=== PATIENT | female | born 1935 | race Caucasian/White ===

== ENCOUNTER 2018-08-03 21:41 | Inpatient (IN) | payer MEDICARE ==
[~2018-08-03] VITALS: Ht 180.3 cm; Wt 106.1 kg
[2018-08-03] MEDS ORDERED: SODIUM CHLORIDE 0.9% 1000ML 1,000 ML IV SCH (22:19)
[2018-08-03] MEDS ORDERED: IPRATROPIUM BROMIDE 0.02% 2.5 ML NEB NEB STA (22:19)
[2018-08-03] MEDS ORDERED: ALBUTEROL SULF 0.083% NEB SOLN 3 ML NEB NEB STA (22:19)
[2018-08-03] MEDS ORDERED: AZTREONAM 2GM/NS 100ML 2 GM in AZTREONAM 2GM/NS 100ML 100 ML IV SCH (22:30)
[2018-08-03] MEDS ORDERED: VANCOMYCIN 1GM/NS 250 ML 250 ML IV SCH (22:30)
[2018-08-03] MEDS ORDERED: SODIUM CHLORIDE FLUSH 10 ML SYR INJ PRN (22:30)
--- NOTE | 2018-08-03 22:56 | Diagnostic Imaging Report ---
EXAM: CHEST SINGLE (PORTABLE), AP 1 view INDICATION: Shortness of breath, COPD COMPARISON: None FINDINGS: LINES/TUBES: None LUNGS: No consolidations or edema. PLEURA: No effusions or pneumothorax. Mild subsegmental bibasilar atelectasis. HEART AND MEDIASTINUM: Normal size and contour. Calcifications of the thoracic aorta. BONES AND SOFT TISSUES: No acute findings. IMPRESSION: Mild subsegmental bibasilar atelectasis. Signed by: Dr. Mara Gallagher M.D. on 08/03/2018 10:52 PM
--- NOTE | 2018-08-03 23:16 | NUR ---
RT CALLED FOR BREATHING TREATMENT.
[2018-08-03 23:34] LABS: BASOPHILS # (AUTO) 0.1 (0.0-0.1); BASOPHILS % 0.5 % (0.0-1.0); EOSINOPHILS # (AUTO) 0.1 (0.0-0.4); EOSINOPHILS % 1.2 % (0.0-6.0); HEMATOCRIT 41.8 % (34.2-44.1); HEMOGLOBIN 12.9 g/dL (12.0-16.0); LYMPHOCYTES # (AUTO) 0.7 (1.0-3.2); LYMPHOCYTES % 7.3 % (18.0-39.1); MEAN CORPUSCULAR HEMOGLOBIN 30.4 pg (28-32); MEAN CORPUSCULAR HGB CONC 30.9 g/dL (31-35); MEAN CORPUSCULAR VOLUME 98.4 fL (81-99); MONOCYTES # (AUTO) 0.9 (0.2-0.8); MONOCYTES % 8.9 % (4.4-11.3); NEUTROPHILS # (AUTO) 8.1 (2.1-6.9); NEUTROPHILS % 80.1 % (38.7-80.0); PLATELET COUNT 601 x10e3/uL (140-360); RED BLOOD COUNT 4.25 x10e6/uL (3.6-5.1); RED CELL DISTRIBUTION WIDTH 12.3 % (11.7-14.4)
[2018-08-03 23:53] LABS: ALANINE AMINOTRANSFERASE 12 IU/L (0-55); ALBUMIN 2.2 g/dL (3.5-5.0); ALBUMIN/GLOBULIN RATIO 0.4 (0.8-2.0); ALKALINE PHOSPHATASE 115 IU/L (40-150); ANION GAP 13.9 mmol/L (8-16); BLOOD UREA NITROGEN 16 mg/dL (7-26); BUN/CREATININE RATIO 19 (6-25); CALCIUM 9.8 mg/dL (8.4-10.2); CARBON DIOXIDE 35 mmol/L (22-29); CHLORIDE 95 mmol/L (98-107); CREATINE KINASE 20 IU/L (29-168); CREATININE, SERUM 0.83 mg/dL (0.57-1.11); EST GLOMERULAR FILTRATION RATE > 60 ML/MIN (60-); GLUCOSE 110 mg/dL (74-118); POTASSIUM 3.9 mmol/L (3.5-5.1); SODIUM 140 mmol/L (136-145)
[2018-08-04] VITALS (8 sets, daily range): BP systolic 126–152; BP diastolic 65–76
[2018-08-04] MEDS: AZTREONAM 2GM/NS 100ML 100 ML IV SCH ×2 (00:13→12:20)
[2018-08-04 00:30] LABS: CLARITY,URINE CLEAR (CLEAR); COLOR,URINE YELLOW (YELLOW); LEUKOCYTE ESTERASE ,URINE NEGATIVE (NEGATIVE); NITRITE,URINE NEGATIVE (NEGATIVE)
[2018-08-04 00:31] LABS: BACTERIA,URINE FEW /HPF; BILIRUBIN,URINE NEGATIVE (NEGATIVE); EPITHELIAL CELLS,URINE RARE /LPF; KETONES,URINE NEGATIVE (NEGATIVE); MUCUS,URINE MODERATE (RARE); PROTEIN,URINE DIPSTICK TRACE (NEGATIVE); URINE UROBILINOGEN 4 mg/dL (0.2 - 1)
[2018-08-04] MEDS ORDERED: ENOXAPARIN INJ 80 MG/0.8 ML SYR SC STA (01:38)
[2018-08-04] MEDS ORDERED: DILTIAZEM HCL ER 90MG CAPSULE PO STA (01:38)
[2018-08-04] MEDS ORDERED: VANCOMYCIN 1GM/NS 250 ML 250 ML IV SCH (01:45)
--- NOTE | 2018-08-04 02:11 | Diagnostic Imaging Report ---
EXAM: ANKLE 3 + VIEWS RIGHT, AP, lateral and oblique INDICATION: Fall, right ankle pain COMPARISON: None FINDINGS: BONES: No acute fractures. JOINTS: No malalignment. SOFT TISSUES: Soft tissue calcifications, probably from venous stasis. Soft tissue swelling of the lower calf and ankle. IMPRESSION: No evidence of a right ankle fracture. Signed by: Dr. Mara Gallagher M.D. on 08/04/2018 2:08 AM
--- OUTSIDE RECORDS SUMMARY | 2018-08-04 02:14 | XMS REPORT ---
Author Author [facility] Address Unknown Phone Unavailable Care Team Providers Care Machine Feeder Raw Stock Name Role Phone EDILMA CARROLL Unavailable Unavailable Problems This patient has no known problems. Allergies, Adverse Reactions, Alerts This patient has no known allergies or adverse reactions. Medications This patient has no known medications. Results Test Description Test Time Test Comments Text Results Atomic Results Result Comments ANKLE 3 + VIEWS RIGHT 2018-08-04 02:06:00 [place] [address] Patient Name: RAMIN ROSS MR #: [id number] : 1935 Age/Sex: 83/F Req #: [id number] Adm Physician: Ordered by: SHREYA HENDRICKSON MD Report #: [id number] Location: ER Room/Bed: Procedure: [id number] DX/ANKLE 3 + VIEWS RIGHT Exam Date: 08/04/18 Exam Time: 0145 REPORT STATUS: Signed EXAM: ANKLE 3 + VIEWS RIGHT, AP, lateral and oblique INDICATION: Fall, right ankle pain COMPARISON: None FINDINGS: BONES: No acute fractures. JOINTS: No malalignment. SOFT TISSUES: Soft tissue calcifications, probably from venous stasis. Soft tissue swelling of the lower calf and ankle. IMPRESSION: No evidence of a right ankle fracture. Signed by: Dr. Cheri Gallagher M.D. on 08/04/2018 2:08 AM Dictated By: CHERI GALLAGHER MD 7 Transcribed By: ERIN on 08/04/18207 COPY TO: SHREYA HENDRICKSON MD CHEST SINGLE (PORTABLE) 2018-08-03 22:51:00 [place] [address] Patient Name: RAMIN ROSS MR #: [id number] : 1935 Age/Sex: 83/F Req #: [id number] Adm Physician: Ordered by: SHREYA HENDRICKSON MD Report #: [id number] Location: ER Room/Bed: Procedure: [id number] DX/CHEST SINGLE (PORTABLE) Exam Date: Exam Time: REPORT STATUS: Signed EXAM: CHEST SINGLE (PORTABLE), AP 1 view INDICATION: Shortness of breath, COPD COMPARISON: None FINDINGS: LINES/TUBES: None LUNGS: No consolidations or edema. PLEURA: No effusions or pneumothorax. Mild subsegmental bibasilar atelectasis. HEART AND MEDIASTINUM: Normal size and contour. Calcifications of the thoracic aorta. BONES AND SOFT TISSUES: No acute findings. IMPRESSION: Mild subsegmental bibasilar atelectasis. Signed by: Dr. Cheri Gallagher M.D. on 08/03/2018 10:52 PM Dictated By: CHERI GALLAGHER MD 51 Transcribed By: ERIN on 08/03/182251 COPY TO: SHREYA HENDRICKSON MD
[2018-08-04] MEDS ORDERED: METHYLPREDNISOLONE SOD SUCC 125 MG/2ML VIAL IV ONE (02:15)
[2018-08-04] MEDS ORDERED: SODIUM CHLORIDE 0.9% 250ML 250 ML ONE (03:43)
[2018-08-04] MEDS: LEVOFLOXACIN 500MG/D5W 100ML IV SCH (03:45)
--- NOTE | 2018-08-04 04:24 | NUR ---
PT IS TRANSFERED FROM ER .PT IS AOX3 .DENIES PAIN .RESPIRATIONS ARE EVEN AND UNLABORED RT AC 20 G S/L /PT HAS BILATERAL LOWER LEGS CELLULITIS BOTH LEGS WERE SWOLLEN AND RED PT HAS NO HOME MEDICATION .FAMILY AT THE BEDSIDE .ORIENTED THE PT TO THE ROOM AND ENVIRONMENT .GIVEN ORDERED MEDS .PT RESTING CALL LIGHT WITH IN REACH .CONTINUE TO MONITOR
[2018-08-04] MEDS ORDERED: ALBUTEROL/IPRATROPIUM 3 ML NEB NEB SCH (06:00)
--- NOTE | 2018-08-04 06:46 | NUR ---
PT RESTING .DENIES PAIN .NO ACUTE DISTRESS NOTED .CALL LIGHT WITH IN REACH .CONTINUE TO MONITOR
[2018-08-04 07:40] LABS: CREATINE KINASE MB 1.3 ng/mL (0-5.0)
--- NOTE | 2018-08-04 10:35 | NUR ---
DR. PRABHAKAR ON THE UNIT- SPOKE WITH DR. PRABHAKAR, RECEIVED ORDERS FOR ECHO AND LASIX 40MG IV ONCE. SPOKE WITH PATIENT- PATIENT IS REFUSING ECHO AND DR. PRABHAKAR IS AWARE. PATIENT AGREED TO RECEIVE LASIX.
--- NOTE | 2018-08-04 10:38 | NUR ---
PER DR. PIPER PATIENT IS REQUESTING TO HAVE DNR CODE STATUS. RN SPOKE TO PATIENT DIRECTLY REGARDING CODE STATUS- PATIENT STATED "IF IT'S MY TIME, IT'S MY TIME" AND STATED "YES, I WANT DNR". PATIENT'S DAUGHTER PRESENT NEAR BEDSIDE AND IS AWARE OF PATIENT'S REQUEST.
--- NOTE | 2018-08-04 10:39 | NUR ---
CALL PLACED OUT TO DR. CARROLL REGARDING PATIENT'S REQUEST TO CHANGE CODE STATUS TO DNR- AWAITING CALLBACK.
[2018-08-04] MEDS ORDERED: FUROSEMIDE INJ 10 MG/ML 4 ML VIAL IV ONE (10:45)
--- NOTE | 2018-08-04 11:20 | Consultation ---
DATE OF CONSULTATION: August 04, 2018 CARDIOLOGY CONSULTATION REFERRING PHYSICIAN: Mary Jane Cr MD REASON FOR CONSULTATION: Shortness of breath, decreased oxygen saturation, and edema with erythema of the lower extremities. HISTORY OF PRESENT ILLNESS: Ms. Chavez is an 83-year-old woman with history of chronic lymphedema, COPD and hypertension, who presents via the ER with shortness of breath and abnormal breathing pattern as per family. She does not like to go to doctor followups and/or undergo regular care per her statements. She had erythema of the lower extremities which has been chronic for which she has been admitted with presumptive diagnosis of cellulitis for antibiotic therapy. On oxygen, her O2 sats have been improving. She states her dyspnea on exertion with minimal activity has been ongoing for many months to years. She is unable to describe it. It is significantly worse currently. She would like to be DNR per her statements to nursing staff and physicians. She is declining an echocardiogram or further treatment or testing at this point, however, being agreeable to a 1-time dose of Lasix to assess response, which will be ordered. REVIEW OF SYSTEMS: A 12-system review is negative, except for as noted above. ALLERGIES: PENICILLIN, TETRACYCLINE. PAST MEDICAL HISTORY: As per HPI. SOCIAL HISTORY: Former smoker. No alcohol or drugs. FAMILY HISTORY: Noncontributory. PHYSICAL EXAMINATION VITAL SIGNS: Temperature 98.1, heart rate 108, respiratory rate 20, blood pressure 152/75, O2 sat 91% on 2 L per minute nasal cannula. GENERAL: No acute distress. Alert, active. NECK: No JVD. CHEST: Scattered rhonchi and decreased breath sounds. CARDIOVASCULAR: Irregularly irregular rate and rhythm, normal S1 and S2. No S3 or S4. No murmurs or rubs. ABDOMEN: Soft and nontender. EXTREMITIES: Chronic lymphedema. Hyperkeratotic skin and some erythema of the forefoot. STUDIES: Reviewed. White blood cells 10, hemoglobin 12.9, platelets 601. Sodium 140, potassium 3.9, chloride 95, bicarbonate 35, BUN 16, creatinine 0.83, glucose 110. Lactic acid 6.8. Calcium 9.8. Total bilirubin 0.7, AST 20, ALT 12, alk phos 115. CK 20 and 16, CK-MB 1.4 and 1.3, troponin I 0.03 and 0.032. Total protein is 7.3, and albumin is 2.2. UA: Specific gravity 1.020, pH 6.5, trace protein, 6-10 RBCs, 6-10 white blood cells hyaline casts 2-5, mucus moderate. Blood cultures were ordered and are pending. Chest x-ray with mild subsegmental bibasilar atelectasis. Ankle x-ray with no evidence of right ankle fracture. ASSESSMENT 1. Lower extremity cellulitis in the setting of lymphedema. 2. Presumptive chronic obstructive pulmonary disease. 3. Ggovr-fl-xnohsjs heart failure, unspecified. 4. Hypertension. 5. Former smoker. 6. Do not resuscitate. RECOMMENDATIONS 1. Lasix IV x1. Patient declining other testing or studies as well as additional medications at this point. 2. Pulmonary consultation, Dr. Owens. Appreciate input. 3. Will follow closely with you. Thank you, Dr. Cr, for the opportunity to participate in the care of Ms. Chavez. Please feel free to call with any questions or concerns. Job#: [id number]
[2018-08-04 11:37] LABS: ABG PH 7.34 (7.31-7.41)
[2018-08-04 11:38] LABS: ABG HCO3 35 mmol/L (23-28); ABG PCO2 65 mmHg (41-51); ABG PO2 63 mmHg (80-105)
--- NOTE | 2018-08-04 11:39 | NUR ---
RECEIVED CALL BACK FROM DR. CARROLL- DR. CARROLL AWARE OF KARAN'S REQUEST TO BE PLACED A DNR.
--- NOTE | 2018-08-04 11:58 | NUR ---
DR. PIPER INFORMED OF ABG RESULTS TODAY- NO NEW ORDERS RECEIVED.
[2018-08-04] MEDS: ALBUTEROL/IPRATROPIUM 3 ML NEB NEB SCH ×2 (13:20→19:00)
--- NOTE | 2018-08-04 13:35 | NUR ---
RECEIVED CALLBACK FROM DR. PIPER REGARDING CLARIFICATION OF DUPLEX ORDER- NEW ORDER RECEIVED FOR BILATERAL LOWER EXTREMITIES.
[2018-08-04] MEDS: VANCOMYCIN 1GM/NS 250 ML 250 ML IV SCH (15:02)
[2018-08-04 15:22] LABS: CREATINE KINASE MB 1.1 ng/mL (0-5.0)
--- NOTE | 2018-08-04 15:30 | Consultation ---
DATE OF CONSULTATION: August 04, 2018 PULMONARY CONSULTATION This is a patient of Dr. Soriano and Dr. Cr. This charming, but unfortunate, 83-year-old woman, has a history of chronic swelling of the lower extremities and somnolence for the last 24 hours. History of noncompliance with any physician followup in the last 10 years according to daughter. History of COPD. History of fall with sprained right ankle 2 weeks ago. Progressively lethargic since then. She has had cataract surgery, tubal ligation, breast cysts removed. Ex-smoker, quit 10 months ago. Smoked for many years. 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 No alcohol use. Born in [place], [place]. Essentially bedfast for the last week except for going to the restroom. PHYSICAL EXAMINATION VITALS: Temperature 98.1, pulse 108, respirations 20, blood pressure 152/71. HEAD: Normocephalic and atraumatic. EYES: The extraocular movements are intact. LUNGS: Diminished breath sounds bilaterally. HEART: Regular rhythm. ABDOMEN: Nontender. EXTREMITIES: Brawny edema to the lower extremities. EKG: Poor quality, suggesting atrial fibrillation. IMPRESSION 1. Chronic obstructive pulmonary disease. 2. Chronic respiratory failure. 3. Congestive heart failure. 4. Atrial fibrillation. The patient will likely require supplemental oxygen at home. Thank you for this kind referral. Job#: [id number]
--- NOTE | 2018-08-04 16:13 | NUR ---
Nutrition Screen Note RD Recommendation for Physician: -Continue cardiac diet as ordered Plan of Care: RD following, monitoring for tolerance and adequacy Nutrition reason for involvement: Nutrition Risk Trigger MST Primary Diagnose(s): 1. Chronic obstructive pulmonary disease. 2. Chronic respiratory failure. 3. Congestive heart failure. 4. Atrial fibrillation. PMH: chronic lymphedema, COPD and hypertension Ht: 71in Wt: 200lb BMI: 27.9kg/m2 IBW: 155lb RD Assessment: (08/04) Chart reviewed. Labs and meds reviewed. Pt was discussed during rounds. 83yo F, who is admitted for SOB. Visited pt in the room. Pt was sleeping; daughter presented on bedside to provide hx. Daughter lives with pt at home. Pt has had good appetite with 75-100% recorded meal intake. No GI complains noted. LBM 14, normal as pt has hx of chronic constipation. No chewing or swallowing difficulty observed by daughter. Daughter doesnt think pt has lost any weight recently. Will continue to monitor and follow. Current Diet: cardiac diet Malnutrition Evaluation (08/04/2018) The patient does not meet criteria for a specified degree of malnutrition at this time. Will re-evaluate at follow-up as appropriate. Diet Education Needs Assessment: Diet education not indicated. Nutrition Care Level: low Signed: Denise Ruelas, MS, RD, LD
[2018-08-04] MEDS ORDERED: ENOXAPARIN SOD INJ 40 MG/0.4 ML SYR SC SCH ×2 (17:00→21:00)
[2018-08-04] MEDS: AMMONIUM LACTATE 12% LOTION 225GM BTL TOP SCH (17:21)
[2018-08-04] MEDS: PREDNISONE 20 MG TAB PO SCH (17:21)
[2018-08-04] MEDS ORDERED: PREDNISONE 20 MG TAB PO SCH (19:00)
--- NOTE | 2018-08-04 19:33 | NUR ---
PATIENT IS IN STABLE CONDITION WITH NO S/S OF RESPIRATORY DISTRESS. NO PAIN VOICED. 02 APPLIED. BED ALARM APPLIED. CALL LIGHT IS WITHIN REACH, INSTRUCTED TO CALL FOR ASSISTANCE NEEDED. REPORT GIVEN TO ONCOMING NURSE.
--- NOTE | 2018-08-04 20:14 | NUR ---
RECEIVED PT IN BED AOX3 .NO ACUTE DISTRESS NOTED /FAMILY AT THE BEDSIDE .RT AC 20G S/L .DENIES PAIN CALL LIGHT WITH IN REACH .CONTINUE TO MONITOR
[2018-08-04] MEDS: ENOXAPARIN INJ 80 MG/0.8 ML SYR SC SCH (21:46)
[2018-08-05] VITALS: BP 121/74
[2018-08-05] MEDS: ALBUTEROL/IPRATROPIUM 3 ML NEB NEB SCH ×3 (01:00→19:25)
[2018-08-05] MEDS: LEVOFLOXACIN 500MG/D5W 100ML IV SCH (01:45)
[2018-08-05] MEDS: VANCOMYCIN 1GM/NS 250 ML 250 ML IV SCH ×2 (03:00→15:23)
[2018-08-05 05:47] LABS: BASOPHILS % 0.1 % (0.0-1.0); HEMOGLOBIN 11.5 g/dL (12.0-16.0); LYMPHOCYTES % 8.6 % (18.0-39.1); MEAN CORPUSCULAR HEMOGLOBIN 30.7 pg (28-32); MEAN CORPUSCULAR HGB CONC 31.1 g/dL (31-35); MEAN CORPUSCULAR VOLUME 98.7 fL (81-99); MONOCYTES # (AUTO) 0.8 (0.2-0.8); MONOCYTES % 6.5 % (4.4-11.3); NEUTROPHILS % 83.1 % (38.7-80.0); PLATELET COUNT 534 x10e3/uL (140-360); RED BLOOD COUNT 3.75 x10e6/uL (3.6-5.1); RED CELL DISTRIBUTION WIDTH 12.1 % (11.7-14.4)
[2018-08-05 06:05] LABS: BLOOD UREA NITROGEN 19 mg/dL (7-26); BUN/CREATININE RATIO 23 (6-25); CALCIUM 9.5 mg/dL (8.4-10.2); CARBON DIOXIDE 34 mmol/L (22-29); CHLORIDE 94 mmol/L (98-107); CREATININE, SERUM 0.81 mg/dL (0.57-1.11); EST GLOMERULAR FILTRATION RATE > 60 ML/MIN (60-); GLUCOSE 105 mg/dL (74-118); SODIUM 134 mmol/L (136-145)
--- NOTE | 2018-08-05 06:34 | NUR ---
PT RESTING .NOACUTE DISTRESS NOTED .FAMILY AT THE BEDSIDE .CALL DE JESUS WITH IN REACH
[2018-08-05 06:50] LABS: CREATINE KINASE MB 1.1 ng/mL (0-5.0)
[2018-08-05 07:15] VITALS: BP 140/73
--- NOTE | 2018-08-05 07:15 | NUR ---
RECEIVED PATIENT RESTING IN BED. NO ACUTE DISTRESS NOTED. FAMILY AT BEDSIDE. CALL LIGHT WITHIN REACH. BED IN THE LOWEST POSITION.
--- NOTE | 2018-08-05 07:26 | NUR ---
REPORT GIVEN TO THE ON COMING NURSE.
[2018-08-05 08:43] VITALS: BP 140/73
[2018-08-05] MEDS ORDERED: DILTIAZEM HCL 180 MG CAP ER PO SCH (09:00)
--- NOTE | 2018-08-05 09:00 | NUR ---
DR. CARROLL IN TO SEE PATIENT. PER TO HOLD [facility] FOR NOW.
[2018-08-05] MEDS: PREDNISONE 20 MG TAB PO SCH ×2 (09:05→16:58)
[2018-08-05] MEDS: FUROSEMIDE 20 MG TAB PO SCH (09:05)
[2018-08-05] MEDS: ENOXAPARIN INJ 80 MG/0.8 ML SYR SC SCH ×2 (09:06→21:00)
[2018-08-05] MEDS: AMMONIUM LACTATE 12% LOTION 225GM BTL TOP SCH ×2 (09:10→16:58)
--- NOTE | 2018-08-05 09:34 | Progress Note ---
DATE: August 05, 2018 Ms. Chavez is an 83-year-old female who never goes to the doctor. Apparently, former smoker for several years. Came to the emergency room with changes in mental status, lower extremity edema. Apparently, the patient sprained her ankle 2 weeks ago. After that, she was in bed and lethargic. They called 911 and they brought her to the emergency room. PHYSICAL EXAMINATION GENERAL: Today, she is awake and alert. She is feeling much better. VITALS: Temperature is 97.8, blood pressure 121/74. HEART: Irregular. LUNGS: Clear to auscultation. ABDOMEN: Distended and soft. BLOOD WORK: Potassium 4, creatinine is 0.81, glucose 105. White count 12, hemoglobin 11.5, hematocrit is 37. On the chest x-ray, mild subsegmental bibasilar atelectasis. She had a Doppler of the lower extremities and a V/Q scan. Doppler preliminary report no DVT. V/Q scan is pending. Ankle x-ray shows no evidence of fracture. ASSESSMENT AND PLAN 1. Djmol-kx-dfvbymi respiratory failure. 2. Changes in mental status. 3. Chronic obstructive pulmonary disease. 4. Lower extremity cellulitis on top of lymphedema. 5. Hypertension. 6. Right ankle trauma. PLAN: At the present time, the patient is doing better. Continue Lasix daily. Continue IV antibiotics. She is on DVT prophylaxis. Continue prednisone. Clinically, the patient is doing much better. All of this was discussed with her. All questions were answered to satisfaction. We are going to get a PT and OT evaluation. Also, oxygen test to see if she needs any home oxygen. Job#: [id number] [place]
[2018-08-05 12:49] VITALS: BP 131/69
--- NOTE | 2018-08-05 13:44 | Consultation ---
DATE OF CONSULTATION: REASON FOR CONSULTATION: Recommendation for antibiotic, shortness of breath, cellulitis of lower extremities. HISTORY OF PRESENT ILLNESS: Ms. Chavez is an 83-year-old white female with history of chronic lymphedema, history of COPD, history of hypertension and obesity. She came to the emergency room with shortness of breath which she had for a few days, worsening of redness and swelling on the bilateral lower extremities for the last few days. Patient was admitted and started on IV antibiotic. She was seen by cardiology. She was admitted to critical care. I was asked to see her. Patient is currently lying in bed comfortably. Family is at the bedside. She thinks that since she came here she is feeling better. REVIEW OF SYSTEMS HEENT: There is no headache, visual changes, or hearing changes. GI: There is no nausea, no vomiting, no diarrhea. CARDIAC: There is no chest pain. PHYSICAL EXAMINATION GENERAL: She is currently alert and oriented. Does not seem to be in distress. VITALS: Stable, currently afebrile. HEENT: She does not appear icteric. NECK: Supple. CHEST: Clear bilaterally. HEART: S1 and S2 normal. ABDOMEN: Soft. EXTREMITIES: She has bilateral lower extremity edema. There is erythema. There are also chronic changes of the skin. PAST MEDICAL HISTORY: As above. PAST SURGICAL HISTORY: Denies. ALLERGIES: PENICILLIN. SOCIAL HISTORY: There is no smoking, drug abuse or alcohol abuse. LABS: White count 12.08, hemoglobin 11, hematocrit 37, platelets 534. Sodium 134, potassium 4.0, creatinine 0.8. PHYSICAL EXAMINATION GENERAL: She is currently alert and oriented, does not seem in acute distress. VITALS: Stable. Currently afebrile. HEENT: She does not appear icteric. NECK: Supple. CHEST: Clear bilaterally. HEART: S1 and S2. No murmur. ABDOMEN: Soft. EXTREMITIES: She did have bilateral lower extremity erythema and edema. There are chronic changes of her legs noted. The skin seems to be thickening with nonpitting edema. IMPRESSION: Cellulitis of bilateral extremities especially with lymphedema component of fluid overload. Cardiology has been consulted. Agree with the current choice of IV vancomycin and Levaquin. Lymphedema discussed with patient and family. She needs to wear elastic stocking and perhaps refer to lymphedema clinic, but the patient did not seem to be interested. Will follow. Job#: [id number] MH
[2018-08-05] MEDS ORDERED: BISACODYL 5 MG TAB EC PO PRN (16:30)
--- NOTE | 2018-08-05 16:59 | Progress Note ---
DATE: August 05, 2018 CARDIOLOGY PROGRESS NOTE SUBJECTIVE: Dyspnea is somewhat better today. Leg discomfort improving. OBJECTIVE VITAL SIGNS: Temperature 99.7, heart rate 86, respiratory rate 20, blood pressure 131/69, O2 sat 95% on nasal cannula. GENERAL: No acute distress. NECK: No JVD. CHEST: With scattered rhonchi. CARDIOVASCULAR: Regular rate and rhythm, normal S1 and S2. No S3 or S4. ABDOMEN: Soft. EXTREMITIES: Chronic hyperpigmented, hyperkeratotic skin and erythema bilateral lower extremities. STUDIES: Reviewed. White blood cells 12, hemoglobin 11.5, platelets 534. Creatinine 0.8. Troponin I is negative x3. ASSESSMENTS 1. Lymphedema. 2. Lower extremity cellulitis. 3. Chronic obstructive pulmonary disease. 4. Hypertension. 5. Suspected component of yccki-ry-mgbzjzs heart failure, unspecified. RECOMMENDATIONS 1. Patient unfortunately declining echo, however clinically improving with diuretic dose. Continue Lasix p.o. as per earlier prescribed and monitor the volume status. 2. For atrial fibrillation, has been placed on Lovenox. We have discussed anticoagulation with Eliquis for the group home at 2.5 mg every 12 hours; however, patient is hesitant about starting this as outpatient. If she declines, we discussed aspirin 325 mg daily p.o. for thromboembolic risk prevention as an alternative. We will revisit prior to discharge these options to allow patient to make decision. 3. Adequately rate controlled. Continue current regimen. 4. Antibiotics per IDs expertise. Thank you, Dr. Cr, for the opportunity to participate in the care of Ms. Chavez. Job#: [id number] HAIR
[2018-08-05 17:03] VITALS: BP 118/66
--- NOTE | 2018-08-05 19:20 | NUR ---
REPORT GIVEN TO ONCOMING NURSE. PATIENT IS RESTING IN BED. FAMILY AT BEDSIDE. CALL LIGHT WITHIN REACH. BED IN THE LOWEST POSITION.
--- NOTE | 2018-08-05 19:20 | NUR ---
patient recieved awake, alert, lying quietly in bed. vss. no c/o pain noted. patient turned and repositioned for comfort. pm assessment complete. family noted at the bedside. patient/family instructed to call for assistance when needed.
[2018-08-05 20:00] VITALS: BP_SYST 120; BP_SYST 125; BP_DIAS 58; BP_DIAS 71
[2018-08-06] VITALS (8 sets, daily range): BP systolic 120–170; BP diastolic 55–94
[2018-08-06] MEDS: ALBUTEROL/IPRATROPIUM 3 ML NEB NEB SCH ×4 (01:07→19:22)
[2018-08-06] MEDS: LEVOFLOXACIN 500MG/D5W 100ML IV SCH (01:26)
[2018-08-06] MEDS: VANCOMYCIN 1GM/NS 250 ML 250 ML IV SCH ×2 (02:38→14:45)
--- NOTE | 2018-08-06 07:38 | NUR ---
PT IN BED ALERT AND AWAKE, NO DISTRESS NOTED
--- NOTE | 2018-08-06 08:25 | Pulmonary Function Test ---
DATE OF STUDY: Patient of Dr. Cr. Restrictive spirometry. Forced vital capacity 0.98 L, 28% of predicted. FEV1 0.91 L, 55% of predicted. FEV1/FVC ratio 93%. FEF 25-75 57%, restrictive pattern. However, there is significant improvement suggesting inhalation of bronchodilators. Forced vital capacity 1.43 L, 33% of predicted, a 15% improvement and 2% improvement in FEV1 of 0.9 L, 36% of predicted. A restrictive pattern. Complete pulmonary functions are recommended. Job#: [id number] RI
[2018-08-06] MEDS: PREDNISONE 20 MG TAB PO SCH ×2 (08:53→17:26)
[2018-08-06] MEDS: AMMONIUM LACTATE 12% LOTION 225GM BTL TOP SCH ×2 (08:53→17:26)
[2018-08-06] MEDS: ENOXAPARIN INJ 80 MG/0.8 ML SYR SC SCH ×2 (08:53→20:16)
[2018-08-06] MEDS: FUROSEMIDE 20 MG TAB PO SCH (08:53)
--- NOTE | 2018-08-06 09:24 | Progress Note ---
DATE: August 06, 2018 SUBJECTIVE: Ms. Chavez is 83-year-old female that has not seen a doctor in several years. She smoked for 62 years, came to the emergency room with changes in mental status and lower extremity edema and erythema. Apparently, she sprained her ankle 2 weeks ago. Since then, she was having pain and then she started not moving and staying in bed, so the family called 911. PHYSICAL EXAMINATION: GENERAL: Today, she is feeling better. VITAL SIGNS: Temperature is 98.2, blood pressure 162/94. HEART: Regular rate. LUNGS: Clear to auscultation. EXTREMITIES: Lower extremity bilaterally erythema, edema, and thickening of the skin with hyperpigmentation in that area. BLOOD WORK: Potassium is 4.0, creatinine is 0.81, glucose 105. White count is 12, hemoglobin is 11.5, hematocrit 37. ASSESSMENT: 1. Usgjw-fc-dvxjbdh respiratory failure. 2. Changes in mental status, resolved. 3. Chronic obstructive pulmonary disease. 4. Lower extremity cellulitis on top of lymphedema. 5. Hypertension. 6. Right ankle trauma. PLAN: At present time is to continue Lasix daily, continue IV antibiotics. PT, OT. DVT prophylaxis. Patient doing better. All this was discussed with patient and family member at bedside. All questions were answered to satisfaction. Job#: [id number]
[2018-08-06] MEDS: NAPROXEN 250 MG TAB PO PRN (09:30)
--- NOTE | 2018-08-06 10:40 | Progress Note ---
DATE: August 06, 2018 CARDIOLOGY PROGRESS NOTE SUBJECTIVE: No new complaints. Sleepy today. OBJECTIVE VITALS: Afebrile, heart rate 68, respiratory rate 18, blood pressure 133/66. GENERAL: In no acute distress. Alert. NECK: No JVD. CHEST: Decreased breath sounds. CARDIOVASCULAR: Irregularly irregular rate and rhythm. Normal S1 and S2. No S3 or S4. ABDOMEN: Soft. EXTREMITIES: With hyperkeratotic skin to lower extremities. Edema improving of bilateral lower extremities. STUDIES: Reviewed. None for today. CARDIOVASCULAR MEDICATIONS: Reviewed. ASSESSMENT 1. Clinically, pfsxe-np-zczatut heart failure: The patient declining echocardiogram. 2. Chronic lung disease with restrictive filling pattern on pulmonary function tests: Further workup advised per pulmonary. 3. Active smoker. 4. Chronic lymphedema, improving. RECOMMENDATIONS 1. Continue current diuretics. The patient with noticeable improvement. 2. Improving lower extremity cellulitis as a result of decreasing edema, as well as antibiotic therapy: Being optimized by infectious disease. 3. Continue CV medications. Job#: [id number] AR
--- NOTE | 2018-08-06 13:15 | NUR ---
ORDERS FOR HOME 02 SATS ON ROOM AIR 84% CHOICE LETTER SIGNED FOR [facility] AND PLACED ON CHART PHONE: [phone] COPY TO PT IMM SIGNED AND ON CHART COPY TO PT FAXED TO [phone] CONFIRMATION REC'D SPOKE WITH SHANNAN WITH [facility] WILL DELIVER PORTABLE TANK TO HOSPITAL TODAY
--- NOTE | 2018-08-06 18:17 | NUR ---
PT IN BED, VISITING WITH FAMILY, NO DISTRESS NOTED. CONTINUE ON IV ANTIBIOTICS
--- NOTE | 2018-08-06 19:30 | NUR ---
patient recieved awake, alert, lying quietly in bed. vss. no c/o pain noted. pm assessment complete. daughter noted at the bedside. patient/daughter instructed to call for assistance when needed.
[2018-08-07] VITALS (8 sets, daily range): BP systolic 109–161; BP diastolic 55–77
[2018-08-07] MEDS: ALBUTEROL/IPRATROPIUM 3 ML NEB NEB SCH ×4 (00:15→19:25)
[2018-08-07] MEDS: LEVOFLOXACIN 500MG/D5W 100ML IV SCH (01:45)
[2018-08-07] MEDS: VANCOMYCIN 1GM/NS 250 ML 250 ML IV SCH ×2 (03:00→14:52)
[2018-08-07] MEDS ORDERED: SODIUM CHLORIDE 0.9% 250ML 250 ML ONE (03:12)
--- NOTE | 2018-08-07 05:00 | NUR ---
patient appears to be resting quietly. no c/o pain noted. daughter remains at the patients bedside throughout the night.
--- NOTE | 2018-08-07 06:00 | NUR ---
iv out. clean dry dressing applied to site. attempted to restart iv but unable to at this time.
[2018-08-07] MEDS: AMMONIUM LACTATE 12% LOTION 225GM BTL TOP SCH ×2 (09:02→16:54)
[2018-08-07] MEDS: FUROSEMIDE 20 MG TAB PO SCH (09:02)
[2018-08-07] MEDS: PREDNISONE 20 MG TAB PO SCH ×2 (09:02→16:54)
[2018-08-07] MEDS: ENOXAPARIN INJ 80 MG/0.8 ML SYR SC SCH ×2 (09:02→21:00)
[2018-08-07] MEDS: NAPROXEN 250 MG TAB PO PRN (14:14)
--- NOTE | 2018-08-07 14:47 | NUR ---
Pt wanda trough 21 .PLACED A CALL FOR DR CARROLL ANSWERING SERVICE. AWAITING CALL BACK
--- NOTE | 2018-08-07 14:56 | NUR ---
DR RAMOS C/F DR CARROLL ORDERS TO HOLD VANCOMYCIN DOSE TODAY AND RESUME TOMORROW ONCE A DAY SAME DOSE, 1GM /250ML
[2018-08-07 15:10] LABS: BASOPHILS % 0.3 % (0.0-1.0); HEMATOCRIT 38.7 % (34.2-44.1); LYMPHOCYTES # (AUTO) 0.7 (1.0-3.2); MEAN CORPUSCULAR HEMOGLOBIN 30.6 pg (28-32); MEAN CORPUSCULAR VOLUME 98.7 fL (81-99); MONOCYTES # (AUTO) 0.5 (0.2-0.8); MONOCYTES % 4.1 % (4.4-11.3); NEUTROPHILS # (AUTO) 11.8 (2.1-6.9); NEUTROPHILS % 88.6 % (38.7-80.0); PLATELET COUNT 526 x10e3/uL (140-360); RED BLOOD COUNT 3.92 x10e6/uL (3.6-5.1); RED CELL DISTRIBUTION WIDTH 12.4 % (11.7-14.4)
--- NOTE | 2018-08-07 15:53 | Progress Note ---
DATE: INTERNAL MEDICINE PROGRESS NOTE SUBJECTIVE: Patient is feeling better. PHYSICAL EXAM VITAL SIGNS: Blood pressure 124/77, temperature 97.3, heart rate 88 per minute, respiratory rate 19 per minute, and oxygen saturation 95%. HEART: Show irregularly irregular heart rate. Normal S1, S2 sounds. LUNGS: Clear bilaterally. ABDOMEN: Soft. EXTREMITIES: Show edema in both lower extremities with some scaly lesions. LABS: Blood work showed BMP; sodium 134, potassium 4.0, chloride 94, CO2 of 34, BUN 19, creatinine 0.81, glucose 105. On the CBC, white blood count 12,000, hemoglobin 11.5, hematocrit 37.0, platelet count 434,000. AST 20, ALT 12, total bilirubin 0.7, alkaline phosphatase 115. FINAL IMPRESSION 1. Chronic obstructive pulmonary disease exacerbation. 2. Bilateral leg cellulitis with lymphedema. 3. Chronic atrial fibrillation. 4. Esenf-kb-jreduhx diastolic congestive heart failure. 5. Obesity. PLAN OF TREATMENT: Continue albuterol and Atrovent q.6 hours and vancomycin 1 gram IV twice a day. Continue with furosemide 20 mg daily, naproxen 250 mg q.6 hours as needed for pain, Levaquin 500 mg IV once a day, prednisone 20 mg twice a day, ammonia lactate topical solution twice a day, Cardizem 180 mg daily, Lovenox 80 mg twice a day, bisacodyl 5 mg twice a day as needed. Case discussed with family and the patient at bedside. Time spent 45 minutes. Job#: [id number] MARIANA
--- NOTE | 2018-08-07 18:14 | NUR ---
PT DID ACCEPT TO DO THE ECHO, DR PRABHAKAR NOTIFIED AND ORDERED IT. RESTING IN BED, OUT OF BED TODAY AND STAYED IN CHAIR FOR SOME HOURS, TOLERATED WELL. FAMILY IN ALL SHIFT
--- NOTE | 2018-08-07 19:10 | NUR ---
REPORT RECEIVED FROM OFF GOING NURSE, PT RESTING IN BED ALERT, FAMILY AT BEDSIDE, DENIES NEDS, NO DISTRESS NOTED, CALL LIGHT IN REACH, INSTRUCTED TO CALL WITH NEEDS, BED ALARM ACTIVATED, TELEMETRY NOTED
[2018-08-08] VITALS (8 sets, daily range): BP systolic 106–148; BP diastolic 55–76
[2018-08-08] MEDS: ALBUTEROL/IPRATROPIUM 3 ML NEB NEB SCH ×4 (01:20→19:03)
[2018-08-08] MEDS: LEVOFLOXACIN 500MG/D5W 100ML IV SCH (02:00)
[2018-08-08] MEDS: VANCOMYCIN 1GM/NS 250 ML 250 ML IV SCH (03:00)
--- NOTE | 2018-08-08 05:32 | NUR ---
PT RESTING IN BED ALERT AND ORIENTED, NO DISTRESS NOTED, DENIES NEEDS, DAUGHTER AT BEDSIDE, BED LOCKED AND LOW, CALL LIGHT IN REACH, TELEMETRY NOTED, INSTRUCTED TO CALL WITH NEEDS
[2018-08-08 06:09] LABS: ANION GAP 10.1 mmol/L (8-16); BLOOD UREA NITROGEN 23 mg/dL (7-26); BUN/CREATININE RATIO 28 (6-25); CALCIUM 9.1 mg/dL (8.4-10.2); CARBON DIOXIDE 37 mmol/L (22-29); CHLORIDE 93 mmol/L (98-107); CREATININE, SERUM 0.82 mg/dL (0.57-1.11); EST GLOMERULAR FILTRATION RATE > 60 ML/MIN (60-); GLUCOSE 102 mg/dL (74-118); POTASSIUM 4.1 mmol/L (3.5-5.1); SODIUM 136 mmol/L (136-145)
[2018-08-08] MEDS: AMMONIUM LACTATE 12% LOTION 225GM BTL TOP SCH ×2 (09:05→17:02)
[2018-08-08] MEDS: PREDNISONE 20 MG TAB PO SCH (09:05)
[2018-08-08] MEDS: ENOXAPARIN INJ 80 MG/0.8 ML SYR SC SCH (09:05)
[2018-08-08] MEDS: FUROSEMIDE 20 MG TAB PO SCH (09:05)
--- NOTE | 2018-08-08 14:10 | Diagnostic Imaging Report ---
Ventilation/perfusion lung scan Clinical Information: 83 F with COPD; has been on 5 weeks bed rest because of foot injury Comparison: Chest radiograph 08/03/2018 Discussion: Xenon-133 gas 19 mCi was administered via inhalation. Dynamic images of the lungs in the posterior projection were obtained through single breath, equilibrium, and washout phases. Distribution of tracer activity is irregular throughout the lungs. There are no segmental ventilatory defects. Washout of tracer is diffusely delayed with diffuse air trapping. Perfusion images of the lungs were obtained in multiple projections following intravenous administration of approximately 5 mCi of Tc-99m MAA. Distribution of tracer is irregular throughout the lungs. The contours of the lungs are well demarcated. There are no segmental perfusion defects of any size. The cardiomediastinal silhouette is unremarkable. Impression: Scan findings represent a VERY LOW probability for acute pulmonary embolic disease based on the PIOPED II criteria. Scan evidence of obstructive lung disease. Signed by: Dr. Ginna Mckee M.D. on 08/08/2018 2:07 PM
--- NOTE | 2018-08-08 14:17 | Progress Note ---
DATE: INTERNAL MEDICINE PROGRESS NOTE SUBJECTIVE: Patient is doing well. No significant complaint. PHYSICAL EXAM VITAL SIGNS: Blood pressure 141/63, temperature 98.6, heart rate 88 per minute, respiratory rate is 20 per minute, oxygen saturation 94%. HEART: Shows regular rhythm. Normal S1, S2 sounds. LUNGS: Clear bilaterally. EXTREMITIES: Show redness on both lower extremities with 2+ bilateral pedal edema. LABS: On the BMP, sodium 136, potassium 4.1, chloride 93, CO2 37, BUN 23, creatinine 0.82, glucose 102. On the CBC, white blood count is 13.2, hemoglobin 12.0, hematocrit 38.7, platelet count 506,000. AST 20, ALT 12, total bilirubin 7.7, alkaline phosphatase 160. FINAL IMPRESSION 1. Chronic obstructive pulmonary disease exacerbation. 2. Cellulitis on both lower extremities. 3. Lymphedema. 4. Obesity. PLAN OF TREATMENT: Continue albuterol and Atrovent q.6 hours, vancomycin 1 gram IV once a day, Lovenox 80 mg twice a day, bisacodyl 5 mg twice a day, furosemide 20 mg daily, naproxen 250 mg twice a day as needed for pain, Levaquin 500 mg IV daily, prednisone 20 mg twice a day, 1 gram twice a day, and Cardizem 180 mg daily. We are going to continue monitoring the CBC especially for the white blood count. Dr. Cr will resume the care tomorrow. Job#: [id number] SUSANA
[2018-08-08] MEDS ORDERED: VANCOMYCIN 1GM/NS 250 ML 250 ML IV SCH (15:00)
--- NOTE | 2018-08-08 15:34 | Progress Note ---
DATE: August 08, 2018 CARDIOLOGY PROGRESS NOTE SUBJECTIVE: No complaints. Agreeable today to initiate anticoagulation p.o. Discussed options, prefers NOAC. Start Xarelto 20 mg daily and discontinue Lovenox. OBJECTIVE VITALS: Temperature 98.6, heart rate 88, respiratory rate 16, blood pressure 141/63, O2 sat 99% on 2 liters per minute nasal cannula. GENERAL: In no acute distress. Alert. NECK: No JVD. CHEST: With scattered rhonchi. CARDIOVASCULAR: Irregular rate and rhythm. Normal S1 and S2. ABDOMEN: Soft, nontender. EXTREMITIES: Chronic lymphedema, hyperpigmented and hyperkeratotic skin. CARDIOVASCULAR MEDICATIONS 1. Lovenox 80 mg subcu q.12 hours, being discontinued today. 2. Furosemide 20 mg p.o. daily. 3. Patient has not taken Cardizem lately. 4. We will initiate low dose beta-fabricio and discontinue calcium-channel fabricio. Echocardiogram finally being done today as patient decided to proceed with the test. STUDIES: Reviewed. Sodium 136, potassium 4.1, chloride 93, bicarbonate 37, BUN 23, creatinine 0.8, glucose 102, calcium 9.1. Troponin I negative x3. TELEMETRY: Atrial fibrillation controlled with ventricular response. ASSESSMENT 1. Atrial fibrillation, paroxysmal. 2. Restricted pulmonary function tests with prior history concerning for chronic obstructive pulmonary disease exacerbation. Further workup as outpatient per pulmonary. 3. Chronic lymphedema. 4. Cellulitis of the lower extremities. 5. Morbid obesity. RECOMMENDATIONS 1. Beta-fabricio low dose. 2. Xarelto 20 mg daily. 3. Continue rest of the cardiovascular medications. 4. Please see separate echo report.. Job#: [id number] MARIANA
[2018-08-08] MEDS: METOPROLOL SUCCINATE 25 MG TAB XL PO SCH (16:03)
--- NOTE | 2018-08-08 18:30 | NUR ---
PT IN BED, NO C/O PAIN OR DISCOMFORT AT MOMENT, NO DISTRESS NOTED
[2018-08-08] MEDS: BUDESONIDE 0.5MG/2 ML NEB INH SCH (19:03)
--- NOTE | 2018-08-08 19:15 | NUR ---
Completed bedside rounds with morning nurse. Pt alert to name. Lying in bed 60 degrees. c/o right foot pain 7/10 pain scale. Call justice within reach. Family at bedside. Will continue to monitor.
--- NOTE | 2018-08-08 19:45 | NUR ---
Admin prn Naproxen for 7/10 right foot pain.
[2018-08-08] MEDS: RIVAROXABAN 20 MG TABLET PO SCH (20:30)
--- NOTE | 2018-08-08 21:00 | NUR ---
D/C 20 IV left AC, pt tolerated well. Addendum: 08/08/18 at 2335 by Jones Snowden RN zaina abad
[2018-08-09] VITALS (7 sets, daily range): BP systolic 120–132; BP diastolic 58–87
[2018-08-09] MEDS: ALBUTEROL/IPRATROPIUM 3 ML NEB NEB SCH ×2 (01:00→19:45)
[2018-08-09] MEDS: LEVOFLOXACIN 500MG/D5W 100ML IV SCH (01:30)
[2018-08-09] MEDS: VANCOMYCIN 1GM/NS 250 ML 250 ML IV SCH (03:45)
--- NOTE | 2018-08-09 07:20 | NUR ---
RECEIVED PATIENT RESTING IN BED. NO ACUTE DISTRESS NOTED. CALL LIGHT WITHIN REACH. FAMILY AT BEDSIDE. BED IN THE LOWEST POSITION.
[2018-08-09] MEDS: FUROSEMIDE 20 MG TAB PO SCH (08:50)
[2018-08-09] MEDS: METOPROLOL SUCCINATE 25 MG TAB XL PO SCH (08:51)
[2018-08-09] MEDS: AMMONIUM LACTATE 12% LOTION 225GM BTL TOP SCH ×2 (08:51→17:10)
[2018-08-09] MEDS ORDERED: PREDNISONE 20 MG TAB PO SCH (09:00)
--- NOTE | 2018-08-09 09:32 | Progress Note ---
DATE: August 09, 2018 Ms. Chavez is an 83-year-old female that has not seen a doctor in several years. She smoked for 62 years. Came to the emergency room with lower extremity edema, erythema and changes in mental status. Apparently, the patient has been sick for 2 weeks. Family decided to call 911, and to bring her to the emergency room. Since she has been here, she is doing much better. At the present time, she is awake and alert. OBJECTIVE VITALS: Temperature is 96.7, blood pressure 122/87. HEART: Regular rate. LUNGS: Bilateral scattered wheezing. ABDOMEN: Distended and soft. EXTREMITIES: Lower extremities has erythema, edema and thickening of the skin that looks like chronic skin changes. BLOOD WORK: Potassium is 4.1, creatinine is 0.82, glucose 102. White count is 13.2, hemoglobin 12, hematocrit 38.7. ASSESSMENT AND PLAN 1. Exglz-gm-yhhhehe respiratory failure. 2. Chronic obstructive pulmonary disease. 3. Lower extremity cellulitis on top of lymphedema. 4. Hypertension. 5. Right ankle trauma. PLAN: At the present time, is to continue furosemide, diltiazem, metoprolol for blood pressure. Continue IV antibiotics. Continue neb treatments with albuterol. Continue p.o. prednisone. Patient is also on Xarelto 20 mg daily for paroxysmal atrial fibrillation. Like I said, she is doing better. Continue PT and OT. We are going to do respiratory therapy to see if the patient requires home O2. Job#: [id number] MELBA
--- NOTE | 2018-08-09 10:58 | Progress Note ---
DATE: August 09, 2018 CARDIOLOGY PROGRESS NOTE SUBJECTIVE: No new complaints. Shortness of breath continues to improve. Denies chest pain. Is agreeable with current medication regimen, including anticoagulation. We discussed her echo results. OBJECTIVE VITALS: Temperature 96.7, heart rate 82, blood pressure 132/87, O2 sat 94% on nasal cannula. GENERAL: In no acute distress. Alert. NECK: No JVD. CHEST: With scattered rhonchi. CARDIOVASCULAR: Irregular rate and rhythm. Normal S1 and S2. No S3 or S4. Systolic ejection murmur /. ABDOMEN: Soft and nontender. EXTREMITIES: With chronic lymphedema. Edema overall improved. CARDIOVASCULAR MEDICATIONS 1. Metoprolol succinate 25 mg daily. 2. Prednisone 20 mg daily. 3. Lasix 20 mg daily. 4. Xarelto 20 mg daily. STUDIES: Reviewed. None available for today. Echocardiogram reviewed. Preserved left ventricular systolic function with left ventricular ejection fraction of 65% to 70%. Mild LVH, left atrial enlargement. No significant valvular abnormality. Atrial fibrillation. ASSESSMENT: An 83-year-old woman with: 1. Paroxysmal atrial fibrillation. 2. Mild left ventricular hypertrophy. 3. Qhksu-od-vfffshu diastolic heart failure. 4. Suspected chronic obstructive pulmonary disease and history of smoking. However, with pulmonary function tests with restricted pattern. Further workup as outpatient per pulmonary. 5. Hypertension. 6. Chronic lymphedema. 7. Cellulitis to the lower extremities, improving. RECOMMENDATIONS 1. Rate controlled with improved blood pressure on currently metoprolol dosing. Continue. 2. Volume status continues to improve as has dyspnea with Lasix. Continue current dose. 3. prevention with Xarelto. Job#: [id number] [place]
--- NOTE | 2018-08-09 14:36 | NUR ---
CALLED DR. CARROLL TO NOTIFY HER THAT PATIENT'S HOME O2 HAS BEEN SET UP. PER DR. CARROLL PATIENT MIGHT BE DISCHARGED TOMORROW.
--- NOTE | 2018-08-09 14:39 | NUR ---
[facility]
--- NOTE | 2018-08-09 17:57 | NUR ---
PAGED DR. BAPTISTE TO ASK WHAT THE PLAN WAS FOR PT'S ABTS DUE TO PATIENT POSSIBLY BEING DISCHARGED TOMORROW.
--- NOTE | 2018-08-09 18:11 | NUR ---
DR. BAPTISTE CALLED BACK. PER HE WILL TAKE CARE OF ABTS TOMORROW MORNING.
--- NOTE | 2018-08-09 19:23 | NUR ---
PT IS RESTING IN BED. NO RESPIRATORY DISTRESS NOTED. BED IN LOWEST POSITION, LOCKED, BED ALARM ON, AND CALL LIGHT WITHIN REACH. WILL CONTINUE TO MONITOR.
--- NOTE | 2018-08-09 19:40 | NUR ---
REPORT GIVEN TO ONCOMING NURSE, PATIENT IS RESTING IN BED. NO S/S OF DISTRESS NOTED. CALL LIGHT WITHIN REACH. BED IN THE LOWEST POSITION.
[2018-08-09] MEDS: BUDESONIDE 0.5MG/2 ML NEB INH SCH (19:45)
[2018-08-09] MEDS: NAPROXEN 250 MG TAB PO PRN (20:28)
[2018-08-09] MEDS: RIVAROXABAN 20 MG TABLET PO SCH (20:28)
[2018-08-10] VITALS (9 sets, daily range): BP systolic 114–139; BP diastolic 53–71
[2018-08-10] MEDS: LEVOFLOXACIN 500MG/D5W 100ML IV SCH (01:35)
[2018-08-10] MEDS: VANCOMYCIN 1GM/NS 250 ML 250 ML IV SCH (02:39)
[2018-08-10] MEDS: ALBUTEROL/IPRATROPIUM 3 ML NEB NEB SCH ×4 (06:30→19:30)
[2018-08-10] MEDS: BUDESONIDE 0.5MG/2 ML NEB INH SCH ×2 (07:00→19:30)
--- NOTE | 2018-08-10 07:04 | NUR ---
RECEIVED PATIENT RESTING IN BED, NO DISTRESS NOTED. DAUGHTER AT BEDSIDE. CALL LIGHT WITHIN REACH. BED IN THE LOWEST POSITION.
[2018-08-10] MEDS ORDERED: PREDNISONE 10 MG TAB PO SCH (09:00)
[2018-08-10] MEDS ORDERED: PREDNISONE 20 MG TAB PO SCH (09:00)
[2018-08-10] MEDS: METOPROLOL SUCCINATE 25 MG TAB XL PO SCH (09:13)
[2018-08-10] MEDS: AMMONIUM LACTATE 12% LOTION 225GM BTL TOP SCH ×2 (09:13→16:44)
[2018-08-10] MEDS: FUROSEMIDE 20 MG TAB PO SCH (09:13)
--- NOTE | 2018-08-10 09:53 | Progress Note ---
DATE: August 10, 2018 SUBJECTIVE: Ms. Chavez is 83-year-old female that has not seen a doctor in several years. She has been a smoker for 62 years. Came to the emergency room complaining of changes in mental status with lower extremity edema and erythema. Apparently, patient has a problem with her ankle and for 2 weeks she not really doing good, she was not getting out of bed, so family decided to call 911 and bring her to the emergency room. While here, she has been seen by hot baller, land leases and rentals manager, and infectious disease. PHYSICAL EXAMINATION: GENERAL: Today, she is awake, she is alert, but she is getting dizzy when she changes position. VITAL SIGNS: Temperature is 97.2, blood pressure 127/71. HEART: Irregularly irregular. LUNGS: Decreased breath sounds bilaterally. ABDOMEN: Distended and soft. EXTREMITIES: Lower extremity bilateral edema, erythema and changes and thickening of the skin with chronic hyperpigmentation. BLOOD WORK: Potassium is 4.1, creatinine is 0.82, glucose is 102. White count is 13.2, hemoglobin is 12.0, hematocrit is 38.7. Blood cultures were negative. Doppler of the lower extremity was negative. V/Q scan shows very low probability for PE. ASSESSMENT: 1. Kkend-kn-eoyeyxm respiratory failure. 2. Chronic obstructive pulmonary disease. 3. Lower extremity cellulitis on top of lymphedema. 4. Zrwph-lw-tjnpiqf diastolic congestive heart failure. 5. Paroxysmal atrial fibrillation. 6. Former smoker. 7. Right ankle pain. 8. Hypertension. PLAN: At present time with this patient is continue IV antibiotics, neb treatments. She is going to need oxygen at home. She was found to have paroxysmal atrial fibrillation, started on Xarelto 20 mg daily. Continue PT, OT. We are going to get home O2. Patient is refusing to go to SNF. All this was discussed with patient and daughter at bedside. All questions were answered to satisfaction. We are going to observe her for 1 more day and see how she does. Job#: [id number]
--- NOTE | 2018-08-10 13:20 | NUR ---
IMM EXPLAINED, SIGNED AND ON CHART COPY TO PT
--- NOTE | 2018-08-10 15:37 | NUR ---
Nutrition Screen Note RD Recommendation for Physician: - Continue cardiac diet as ordered Plan of Care: RD following, monitoring for tolerance and adequacy Nutrition reason for involvement: Follow up Primary Diagnose(s): 1. Chronic obstructive pulmonary disease. 2. Chronic respiratory failure. 3. Congestive heart failure. 4. Atrial fibrillation. PMH: chronic lymphedema, COPD and hypertension Ht: 71in Wt: 200lb BMI: 27.9kg/m2 IBW: 155lb RD Assessment: (08/10) Chart reviewed. Pt was discussed during rounds. Currently on PO lasix and abx. Visited pt in the room. Pt reports improved appetite with 75-100% recorded meal intake. Pt complains of being nauseated every morning and meds were given. No other GI complains at this time. LBM 08/10. Current diet is well tolerated and appropriate. Will continue to monitor and follow. (08/04) Chart reviewed. Labs and meds reviewed. Pt was discussed during rounds. 83yo F, who is admitted for SOB. Visited pt in the room. Pt was sleeping; daughter presented on bedside to provide hx. Daughter lives with pt at home. Pt has had good appetite with 75-100% recorded meal intake. No GI complains noted. LBM 08/02, normal as pt has hx of chronic constipation. No chewing or swallowing difficulty observed by daughter. Daughter doesnt think pt has lost any weight recently. Will continue to monitor and follow. Current Diet: cardiac diet Malnutrition Evaluation (08/04/2018) The patient does not meet criteria for a specified degree of malnutrition at this time. Will re-evaluate at follow-up as appropriate. Diet Education Needs Assessment: Diet education not indicated. Nutrition Care Level: low Signed: Denise Ruelas, MS, RD, LD
[2018-08-10] MEDS ORDERED: FUROSEMIDE 20 MG TAB PO PRN (16:45)
--- NOTE | 2018-08-10 19:02 | NUR ---
REPORT GIVEN TO ONCOMING NURSE. PATIENT IS RESTING IN BED. NO ACUTE DISTRESS NOTED, NO SOB. CALL LIGHT WITHIN REACH. BED IN THE LOWEST POSITION.
--- NOTE | 2018-08-10 19:16 | NUR ---
PT IS RESTING IN BED WITH DAUGHTERS AT BEDSIDE. NO RESPIRATORY DISTRESS NOTED. BED IN LOWEST POSITION, LOCKED, AND CALL LIGHT WITHIN REACH. WILL CONTINUE TO MONITOR.
[2018-08-10] MEDS: NAPROXEN 250 MG TAB PO PRN (19:45)
[2018-08-10] MEDS: RIVAROXABAN 20 MG TABLET PO SCH (19:46)
--- NOTE | 2018-08-10 20:10 | NUR ---
PER DR BAPTISTE VANC TROUGH BEFORE THE THIRD DOSE AND HOLD VANCOMYCIN IF TROUGH IS GREATER THAN 20. WILL CONTINUE TO MONITOR.
--- NOTE | 2018-08-10 23:47 | Progress Note ---
DATE: August 10, 2018 CARDIOLOGY PROGRESS NOTE SUBJECTIVE: No complaints or shortness of breath. Edema improving. Dyspnea improving. Feels much better compared to when first admitted. Some episodes of dizziness today. On telemetry, in atrial fibrillation with controlled ventricular response. OBJECTIVE VITAL SIGNS: Stable. Temperature 97.2, heart rate 69, respiratory rate 20, blood pressure 139/70, and O2 sat 96% . GENERAL: No acute distress. Alert. NECK: No JVD. CHEST: Clear to auscultation. CARDIOVASCULAR: Irregular rate and rhythm. Normal S1 and S2. No S3 or S4. ABDOMEN: Soft and nontender. EXTREMITIES: Trace edema. Chronic lymphedema changes. STUDIES: Reviewed. White blood cells 13.2, hemoglobin 12, and platelets 526,000. Sodium 136, potassium 4.1, chloride 93, bicarbonate 37, BUN 23, creatinine 0.8, and glucose 102. ASSESSMENT 1. Paroxysmal atrial fibrillation. 2. Vyxcx-tx-eppqpqq diastolic heart failure. 3. Chronic obstructive pulmonary disease. 4. Chronic lymphedema on lower extremities. 5. Lower extremity associated with cellulitis, bilaterally. RECOMMENDATIONS 1. Overall improved. Somewhat dizzy today. Adjust medications accordingly. Switch Lasix to p.r.n. 2. Out of bed to chair. 3. Continue rest of cardiovascular medications. 4. Upon discharge, please follow in the office within the following 2 to 4 weeks. Job#: [id number]
[2018-08-11] VITALS: BP 129/62
[2018-08-11] MEDS: ALBUTEROL/IPRATROPIUM 3 ML NEB NEB SCH ×3 (01:26→10:39)
[2018-08-11] MEDS: VANCOMYCIN 1GM/NS 250 ML 250 ML IV SCH (03:14)
[2018-08-11 04:00] VITALS: BP 137/63
[2018-08-11] MEDS: BUDESONIDE 0.5MG/2 ML NEB INH SCH (07:00)
[2018-08-11 08:00] VITALS: BP 117/59
[2018-08-11 08:11] VITALS: BP 117/59
[2018-08-11] MEDS: METOPROLOL SUCCINATE 25 MG TAB XL PO SCH (08:30)
[2018-08-11] MEDS ORDERED: PREDNISONE 5 MG TAB PO ONE (09:00)
[2018-08-11] MEDS: AMMONIUM LACTATE 12% LOTION 225GM BTL TOP SCH (10:28)
[2018-08-11] MEDS ORDERED: MECLIZINE HCL 12.5 MG TAB PO SCH (10:30)
--- NOTE | 2018-08-11 11:02 | Progress Note ---
DATE: August 11, 2018 CARDIOLOGY PROGRESS NOTE SUBJECTIVE: No complaints. OBJECTIVE VITAL SIGNS: Temperature 97.3, heart rate 62, respiratory rate 16, blood pressure 117/59, and O2 sat 94% on 2 liters per minute nasal cannula. GENERAL: No acute distress. Alert. NECK: No JVD. CHEST: Clear to auscultation. CARDIOVASCULAR: Irregularly irregular rate and rhythm. Normal S1 and S2. ABDOMEN: Soft, nontender, nondistended. EXTREMITIES: Trace edema. CARDIOVASCULAR MEDICATIONS 1. Metoprolol succinate 25 mg daily. 2. Xarelto 20 mg daily. 3. Furosemide 20 mg daily p.r.n. 4. Initiating meclizine 25 mg every 12 hours. STUDIES: Reviewed. Vancomycin 8.4. TELEMETRY: Atrial fibrillation with controlled ventricular response. ASSESSMENTS 1. Atrial fibrillation. 2. Fpcxn-eo-tiynrak diastolic heart failure. 3. Chronic lymphedema. 4. Suspected chronic obstructive pulmonary disease with pulmonary function tests concerning for a restrictive pattern, pending further outpatient evaluation. 5. Lower extremity cellulitis, improving. RECOMMENDATIONS: In the setting of described symptoms of vertigo, I have initiated meclizine 25 mg twice a day. Ambulate with assistance and assess stability. If stable, okay to discharge from a cardiovascular standpoint. Continue current cardiovascular medications and outpatient followup in 2 to 4 weeks. Job#: [id number] HAIR
[2018-08-11 11:55] VITALS: BP 122/58
--- NOTE | 2018-08-11 13:16 | NUR ---
UPDATED PULSE OX ON ROOM AIR 86% FAXED TO [facility] AT [phone]; CONFIRMATION REC'D ORDERS FOR ROLLING WALKER AND HOME HEALTH CHOICE LETTER SIGNED FOR [facility] AND PLACED IN CHART COPY TO PT PH [phone] FAX: [phone] CONFIRMATION REC'D PROVIDED PT WITH ROLLING WALKER FOR DISCHARGE GAVE PT ADDRESS AND PHONE NUMBER FOR DR CARROLL AND DR PIPER TO MAKE APPT WITHIN 7 DAYS FROM DISCHARGE
--- NOTE | 2018-08-11 13:59 | Discharge Summary ---
HOSPITAL COURSE: Ms. Chavez is an 83-year-old female that has not seen a doctor in several years, former smoker for 62 years, came to the emergency room with changes in mental status. She was found to have lower extremity cellulitis on top of lymphedema. She has been evaluated here by supervisor metal hanging and nurse practitioner physicians assistant also. She was found to have a paroxysmal atrial fibrillation. PHYSICAL EXAM: GENERAL: Today she is awake and alert. VITAL SIGNS: Temperature is 97.2, blood pressure 117/59. Patient states that when she sits up or lays down she gets dizzy, just when she changes positions. HEART: Regular irregular. LUNGS: Clear to auscultation. ABDOMEN: Soft. EXTREMITIES: Lower extremity bilateral erythema going down, but she has chronic changes in the skin that looks hyperpigmented and thick. BLOOD WORK: Potassium 4.1, creatinine is 0.82, glucose 102. White count 13.2, hemoglobin 12, hematocrit 38.7. Doppler of the lower extremity was negative for DVT. V/Q scan very low probability of PE. DISCHARGE DIAGNOSES: 1. Lmwwt-lu-fzncqvr respiratory failure. 1. Chronic obstructive pulmonary disease. 2. Lower extremity cellulitis on top of lymphedema. 3. Lgsli-rf-viuicmk diastolic congestive heart failure. 4. Paroxysmal atrial fibrillation. 5. Former smoker. 6. Right ankle pain. 7. Hypertension. PLAN AT THE PRESENT TIME: The patient is going to be switched to p.o. antibiotics. SHE IS ALLERGIC TO TETRACYCLINES, PENICILLIN AND SULFA. So, will discuss with Infectious Disease which antibiotic she is going to go on. We already have oxygen at home for her. She is going to be on Xarelto 20 mg daily for paroxysmal atrial fibrillation. Patient refused SNF. She is to continue metoprolol 25 mg daily, and we are going to put her on ProAir p.r.n. for shortness of breath. She needs followup with me in 1 week. She is to call me or come back to the emergency room if any recurrent problem. Patient refused to go to SNF; so, we are going to discharge her home. Please see home medication reconciliation list. All this was discussed with patient and daughter at bedside. All questions were answered to satisfaction. We are also going to put her on Antivert for vertigo. Job#: [id number] EV
[2018-08-11] MEDS ORDERED: LEVAQUIN500 MG PO (15:22)
[2018-08-11] MEDS ORDERED: METOPROLOL SUCC25 MG PO (15:23)
[2018-08-11] MEDS ORDERED: XARELTO20 MG PO (15:24)
[2018-08-11] MEDS ORDERED: MECLIZINE HCL12.5 MG PO (15:25)
[2018-08-11] MEDS ORDERED: PROAIR HFA INH8.5 GM IH (15:27)
[2018-08-11 16:00] VITALS: BP 111/56
--- NOTE | 2018-08-11 16:18 | NUR ---
Pt discharged home at this time. Home health and walker was ordered and arranged by case management. Pt is also discharged with oxygen to home. Two tanks were delivered here prior to discharge. Discharge instructions given to patient and family at the bedside and all have verbalized understanding of discharge instructions and follow up appt.
== END 2018-08-11 16:18 | disposition home health service (06) | DRG 602 ==
LOC: ER 21:41 → ERHOLD 08-04 02:11 → MED/SURG3 08-04 03:02
PROVIDERS: ADMIT Internal Medicine; ATTEND Internal Medicine
DX: L03.116 Cellulitis of left lower limb (principal); J96.00 Acute respiratory failure, unspecified whether with hypoxia or hypercapnia; I50.21 Acute systolic (congestive) heart failure; J96.20 Acute and chronic respiratory failure, unspecified whether with hypoxia or hypercapnia; I50.33 Acute on chronic diastolic (congestive) heart failure; J44.1 Chronic obstructive pulmonary disease with (acute) exacerbation; I89.0 Lymphedema, not elsewhere classified; L03.115 Cellulitis of right lower limb; I11.0 Hypertensive heart disease with heart failure; I48.0 Paroxysmal atrial fibrillation; Z79.01 Long term (current) use of anticoagulants; Z79.891 Long term (current) use of opiate analgesic; M25.571 Pain in right ankle and joints of right foot; I10 Essential (primary) hypertension; Z88.0 Allergy status to penicillin; Z88.2 Allergy status to sulfonamides; J44.9 Chronic obstructive pulmonary disease, unspecified; Z91.19 Patient's noncompliance with other medical treatment and regimen; Z99.81 Dependence on supplemental oxygen; Z66 Do not resuscitate; E66.01 Morbid (severe) obesity due to excess calories; Z68.32 Body mass index [BMI] 32.0-32.9, adult
CPT/HCPCS: 36415; 36600; 71045; 78582; 80048; 80053; 80202; 81001; 82550; 82553; 82805; 83605; 84484; 85025; 87040; 93005; 93306; 93970; 94060; 94640; 97139; 99284; A9540; A9558; J1650; J1940; J1956; J2930; J3370; J7030; J7050; J7512

== ENCOUNTER 2019-02-04 11:09 | Inpatient (IN) | payer MEDICARE ==
[~2019-02-04] VITALS: Ht 182.9 cm; Wt 93.0 kg
[~2019-02-04 11:09] MED LIST: LEVAQUIN500 MG PO; MECLIZINE HCL12.5 MG PO; METOPROLOL SUCC25 MG PO; PROAIR HFA INH8.5 GM IH; XARELTO20 MG PO
[2019-02-04] MEDS ORDERED: IPRATROPIUM BROMIDE 0.02% 2.5 ML NEB NEB STA (11:18)
[2019-02-04] MEDS ORDERED: METHYLPREDNISOLONE SOD SUCC 125 MG/2ML VIAL IV STA (11:18)
[2019-02-04] MEDS ORDERED: ALBUTEROL SULF 0.083% NEB SOLN 3 ML NEB NEB STA (11:18)
[2019-02-04 11:40] LABS: BASOPHILS % 0.2 % (0.0-1.0); EOSINOPHILS # (AUTO) 0.1 (0.0-0.4); EOSINOPHILS % 0.3 % (0.0-6.0); HEMATOCRIT 24.2 % (34.2-44.1); HEMOGLOBIN 7.8 g/dL (12.0-16.0); LYMPHOCYTES # (AUTO) 1.5 (1.0-3.2); LYMPHOCYTES % 8.5 % (18.0-39.1); MEAN CORPUSCULAR HGB CONC 32.2 g/dL (31-35); MEAN CORPUSCULAR VOLUME 93.1 fL (81-99); MONOCYTES # (AUTO) 1.5 (0.2-0.8); MONOCYTES % 8.8 % (4.4-11.3); NEUTROPHILS # (AUTO) 14.1 (2.1-6.9); NEUTROPHILS % 80.7 % (38.7-80.0); PLATELET COUNT 599 x10e3/uL (140-360); RED CELL DISTRIBUTION WIDTH 12.4 % (11.7-14.4)
[2019-02-04 11:54] LABS: INR 1.41; PROTHROMBIN TIME 17.8 seconds (11.9-14.5)
[2019-02-04 11:55] LABS: PARTIAL THROMBOPLASTIN TIME 41.1 seconds (23.8-35.5)
[2019-02-04] MEDS ORDERED: LASIX20 MG PO (12:09)
[2019-02-04] MEDS ORDERED: LEVOTHYROXINE50 MCG PO (12:09)
[2019-02-04] MEDS ORDERED: BROMFED DM COU118 ML PO (12:10)
[2019-02-04] MEDS ORDERED: GABAPENTIN300 MG PO (12:10)
[2019-02-04 12:18] LABS: ALBUMIN 2.2 g/dL (3.5-5.0); ALBUMIN/GLOBULIN RATIO 0.5 (0.8-2.0); ANION GAP 16.2 mmol/L (8-16); CREATININE, SERUM 0.95 mg/dL (0.57-1.11); POTASSIUM 4.2 mmol/L (3.5-5.1)
[2019-02-04 12:27] LABS: CALCIUM 9.8 mg/dL (8.4-10.2)
[2019-02-04 12:34] LABS: CREATINE KINASE MB 0.6 ng/mL (0-5.0)
[2019-02-04] MEDS ORDERED: SODIUM CHLORIDE 0.9% 500ML 500 ML IV STA (12:43)
[2019-02-04 13:17] LABS: BILIRUBIN,URINE NEGATIVE (NEGATIVE); CLARITY,URINE CLOUDY (CLEAR); COLOR,URINE YELLOW (YELLOW); KETONES,URINE NEGATIVE (NEGATIVE); LEUKOCYTE ESTERASE ,URINE SMALL (NEGATIVE); NITRITE,URINE NEGATIVE (NEGATIVE); PROTEIN,URINE DIPSTICK 1+ (NEGATIVE); URINE UROBILINOGEN 0.2 mg/dL (0.2 - 1)
[2019-02-04 13:30] LABS: BACTERIA,URINE MODERATE /HPF; EPITHELIAL CELLS,URINE RARE /LPF
[2019-02-04] MEDS ORDERED: IOPAMIDOL 370 MG/ML 200 ML INFUS..BTL INJ ONE (14:44)
[2019-02-04] MEDS ORDERED: SODIUM CHLORIDE 0.9% 50ML 50 ML ONE (14:44)
--- NOTE | 2019-02-04 15:33 | Diagnostic Imaging Report ---
CT of the abdomen and pelvis, with contrast, 02/04/2019. History: Anemia, shortness of breath. Comparison: Chest x-ray from earlier today. Technique: Multidetector CT scanning of the abdomen and pelvis was performed from the level of the lung bases to the inferior pubic rami after intravenous administration of contrast. No oral contrast was given. Coronal and sagittal multiplanar reformations were obtained. RADIATION DOSE: Total DLP: 596 mGy*cm Dose modulation, iterative reconstruction, and/or weight based adjustment of the mA/kV was utilized to reduce the radiation dose to as low as reasonably achievable. Discussion: LUNG BASES: The heart is enlarged. There is bibasilar atelectasis. ABDOMEN: A small stone is present in the posterior aspect of the gallbladder. There is no gallbladder wall thickening. The liver is mildly enlarged measuring over 17 cm in length. The biliary tree, spleen, pancreas, adrenal glands, and kidneys are normal. The hepatic vein, portal vein, and splenic vein are patent. The abdominal aorta is within normal limits for size. A 4.0 x 2.8 x 2.7 cm oval mass measuring 45 Hounsfield units in density is present within the left lower quadrant of the abdomen, between the inferior mesenteric vessels and loops of small bowel. Elevation of bowel is limited without oral contrast. There is no bowel dilatation. Scattered colonic diverticuli are present without evidence of adjacent inflammation. Multiple nonspecific subcentimeter retroperitoneal lymph nodes are present. There is no evidence of free fluid. PELVIS: The bladder, uterus, adnexa are unremarkable. There is no evidence of free fluid or adenopathy. BONES AND SOFT TISSUES: Advanced degenerative changes are present throughout the lumbar spine without evidence of lytic or sclerotic lesion. IMPRESSION: 1. Cholelithiasis without gallbladder wall thickening. 2. Mild hepatomegaly without focal hepatic abnormality. 3. Circumscribed intra-abdominal mass of uncertain etiology, differential considerations include peritoneal metastasis, lymphoma, carcinoid, GIST. 4. Colonic diverticulosis without evidence of diverticulitis. Signed by: Fernie Hummel on 02/04/2019 3:29 PM
--- NOTE | 2019-02-04 17:43 | Diagnostic Imaging Report ---
Chest, 2 views, 02/04/2019. History: Shortness of breath. Comparison: 08/03/2018. Findings: The cardiomediastinal silhouette and pulmonary vasculature are mildly prominent. Linear opacities are present in the lung bases. There is no focal consolidation or pleural effusion. There are no acute osseous or soft tissue abnormalities. Impression: Mild cardiomegaly and vascular congestion with bibasilar atelectasis. Signed by: Fernie Hummel on 02/04/2019 3:03 PM
[2019-02-04] MEDS ORDERED: ASPIRIN 81 MG CHEW TAB PO ONE (19:15)
[2019-02-04] MEDS: AZITHROMYCIN 500MG/SOD CHL 0.9% 250ML BAG IV SCH (20:05)
[2019-02-04] MEDS: ALBUTEROL/IPRATROPIUM 3 ML NEB NEB SCH ×2 (20:15→23:41)
[2019-02-04 22:14] VITALS: BP 116/54
--- NOTE | 2019-02-04 22:41 | NUR ---
patient is a new admit that arrived via stretcher.patient is awake and talking. patient has been transferred into the bed, bed is in lowest position and call justice is within reach. will continue to monitor patient.
[2019-02-04 22:49] VITALS: BP 116/54
[2019-02-05] VITALS: BP 117/62
[2019-02-05] MEDS: ALBUTEROL/IPRATROPIUM 3 ML NEB NEB SCH ×6 (03:00→23:55)
[2019-02-05 04:00] VITALS: BP 120/56
[2019-02-05 05:21] LABS: BASOPHILS % 0.1 % (0.0-1.0); HEMATOCRIT 24.1 % (34.2-44.1); HEMOGLOBIN 7.7 g/dL (12.0-16.0); LYMPHOCYTES # (AUTO) 0.6 (1.0-3.2); LYMPHOCYTES % 4.2 % (18.0-39.1); MEAN CORPUSCULAR HEMOGLOBIN 29.7 pg (28-32); MEAN CORPUSCULAR VOLUME 93.1 fL (81-99); MONOCYTES # (AUTO) 0.3 (0.2-0.8); MONOCYTES % 2.2 % (4.4-11.3); NEUTROPHILS # (AUTO) 13.5 (2.1-6.9); NEUTROPHILS % 91.8 % (38.7-80.0); PLATELET COUNT 541 x10e3/uL (140-360); RED BLOOD COUNT 2.59 x10e6/uL (3.6-5.1); RED CELL DISTRIBUTION WIDTH 12.3 % (11.7-14.4)
[2019-02-05 05:37] LABS: ANION GAP 16.3 mmol/L (8-16); CREATININE, SERUM 1.15 mg/dL (0.57-1.11); POTASSIUM 4.3 mmol/L (3.5-5.1)
[2019-02-05 05:56] LABS: CREATINE KINASE MB 1.5 ng/mL (0-5.0)
--- NOTE | 2019-02-05 07:01 | NUR ---
report given to day nurse. patient is resting comfortably in bed. bed is in lowest position and call justice is within reach.
[2019-02-05 08:00] VITALS: BP 124/59
[2019-02-05] MEDS: FAMOTIDINE 20 MG/2 ML VIAL IV SCH ×2 (08:45→16:43)
[2019-02-05 12:07] VITALS: BP 107/60
[2019-02-05] MEDS ORDERED: MAGNESIUM HYDROXIDE 30 ML UDC PO ONE (14:00)
[2019-02-05] MEDS ORDERED: BISACODYL 10 MG SUPP PR ONE (14:00)
--- NOTE | 2019-02-05 14:02 | History and Physical ---
CHIEF COMPLAINT: Worsening shortness of breath with fever and chills. HISTORY OF PRESENT ILLNESS: This is an 83-year-old white woman, who presents to [facility] with 1-week history of worsening shortness of breath and cough. The patient states for the last two weeks she has been very weak. The patient states two days prior to admission, she had been experiencing shaking chills and subjective fever. The patient states she was heavy tobacco smoker, but she quit in 2018. In the emergency room, the patient was found to have white blood cell count of 17,400 with 80% segmented neutrophils. The patient's hemoglobin was also very low at 7.8 g/dL. The patient's adult daughter states the patient has not moved her bowels in 1 week. In the emergency room, the patient had a chest x-ray performed that revealed mild cardiomegaly and vascular congestion with bibasilar atelectasis. The patient also underwent a CT of the abdomen and pelvis in the emergency room because of her constipation that revealed cholelithiasis without gallbladder wall thickening. It also revealed mild hepatomegaly. Most concerning was a circumscribed intraabdominal mass of uncertain etiology. The patient was admitted for further evaluation and treatment. REVIEW OF SYSTEMS: GENERAL: Weight has been stable, but she has been very weak for the last two weeks. HEENT: No headaches. No vision changes. CARDIOVASCULAR/RESPIRATORY: Worsening shortness of breath and cough for the last week. No chest pain or tightness. Denies any palpitations. GI: Complains of slight nausea for the past week. No bowel movement for the last week according to adult daughter. No diarrhea. : No UTI symptoms. NEUROMUSCULAR: No limb weakness or numbness, but she has had more swelling in her legs recently. PAST MEDICAL HISTORY: 1. COPD. 2. Previous heavy tobacco smoker, quit in 2018. 3. Hypertensive heart disease. 4. Chronic diastolic congestive heart failure. 5. Hypothyroidism. 6. Chronic atrial fibrillation. 7. Chronic lower extremity lymphedema. PAST SURGICAL HISTORY: Noncontributory. FAMILY HISTORY: The patient's mother had COPD. The patient's father was healthy. ALLERGIES: 1. PENICILLIN. 2. TETRACYCLINE. 3. SULFA-CONTAINING ANTIBIOTICS. SOCIAL HISTORY: This woman is a and she lives with adult daughter who is blind. She was heavy tobacco smoker, but quit in 2018. No history of alcohol use. She is retired. HOME MEDICATIONS: 1. Albuterol inhaler 2 puffs q.i.d. 2. Bromfed DM 1 teaspoon twice daily for cough and congestion. 3. Furosemide 20 mg daily. 4. Gabapentin 300 mg b.i.d. 5. Levofloxacin 500 mg daily. 6. Levothyroxine 25 mcg daily. 7. Meclizine 25 mg b.i.d. 8. Metoprolol succinate 25 mg daily. 9. Xarelto 20 mg daily. PHYSICAL EXAMINATION: GENERAL: She is awake, alert, and fluent. She is mildly dyspneic. She does not appear to be in any respiratory distress. She does appear to be chronically ill. Her adult daughter and adult sone are at bedside. She is very pleasant and cooperative on exam. She is 6 feet 0 inches, weight is 212 pounds, BMI is 29. VITAL SIGNS: Blood pressure is 108/60, pulse is 100, respiratory rate is 16, oxygen saturation is 99% on 3 L of oxygen, and temperature 97.5. INTEGUMENT: Skin is warm and dry. Slight pallor, jaundice, and diaphoresis. HEENT: Anicteric sclerae. Moist mucous membranes. NECK: Supple. No evidence of jugular venous distention. CARDIOVASCULAR: Tachycardic rate, regular rhythm. The patient has S3 gallop. LUNGS: The patient has crackles and rhonchi in the bilateral lung velasco. ABDOMEN: Obese yet benign. EXTREMITIES: The patient has trace to 1+ edema in the bilateral legs. The patient has erythematous discoloration and skin thickening in the bilateral lower legs consistent with chronic lymphedema/venous stasis. NEUROLOGIC: Intact. No gross focal deficits appreciated. DIAGNOSES: 1. Chronic obstructive pulmonary disease exacerbation. 2. Bilateral pneumonia, likely. 3. Acute on chronic diastolic congestive heart failure. 4. Suspicious intraabdominal mass. 5. Chronic atrial ablation. 6. Previous heavy tobacco smoker, quit 2018. PLAN: 1. Consult Gastroenterology for the patient's constipation and intraabdominal mass. 2. Continue Xarelto for the patient's chronic atrial fibrillation. 3. Intravenous furosemide. 4. Intravenous antibiotics for pneumonia. 5. Nebulized bronchodilators. 6. I spoke at length with the family members. 7. We will honor the patient's wishes and proceed with a do not resuscitate code status. I spent an hour in the care of this patient. MD JOSE ANTONIO Verde/SORAYA /[id number]
[2019-02-05 14:08] LABS: CREATINE KINASE MB 1.7 ng/mL (0-5.0)
[2019-02-05] MEDS ORDERED: SODIUM CHLORIDE 0.9% 250ML 250 ML ONE ×2 (14:14→16:40)
[2019-02-05] MEDS: CEFTRIAXONE SOD 1 GM/NS 50 ML 50 ML IV SCH (14:45)
[2019-02-05] MEDS: FUROSEMIDE INJ 10 MG/ML 4 ML VIAL IV SCH ×2 (14:45→20:16)
--- NOTE | 2019-02-05 15:23 | NUR ---
patient alert and oriented with family at bedside. patient and family aware of upcoming room change. report called to new unit for patient to transfer via wheelchair
--- NOTE | 2019-02-05 15:45 | NUR ---
RECD PT FROM OBS VIA WC.AAOX3,DENIES PAIN,O2 2L NC IN PLACE IV TO LT HAND 22 G.
[2019-02-05] MEDS: ALBUTEROL SULFATE HFA 8GM INHALATION AEROSOL INH SCH (16:00)
[2019-02-05] MEDS ORDERED: RIVAROXABAN 20 MG TABLET PO SCH ×2 (17:00)
[2019-02-05] MEDS ORDERED: GABAPENTIN 300 MG CAP PO SCH (17:00)
--- NOTE | 2019-02-05 17:22 | NUR ---
DR HO HERE.
[2019-02-05] MEDS: AZITHROMYCIN 500MG/SOD CHL 0.9% 250ML BAG IV SCH (17:30)
--- NOTE | 2019-02-05 17:42 | NUR ---
SPOKE WITH DR MORIN ORDERS WRITTEN.PT UP IN BED NO DISTRESS NOTED
[2019-02-05] MEDS ORDERED: MECLIZINE HCL 12.5 MG TAB PO SCH (18:00)
--- NOTE | 2019-02-05 19:38 | NUR ---
Received change of shift report from AM nurse. Walking rounds completed.
[2019-02-05 20:00] VITALS: BP 110/56
--- NOTE | 2019-02-05 21:54 | NUR ---
Patient in bed. AAOx3. Daughter at bedside. Patient denies pain at this time. Patient with +2 edema to legs bilaterally. IV to left wrist dry and intact. Tele A-Fib. O2 2l n/c. Continue monitor.
--- NOTE | 2019-02-05 23:11 | NUR ---
Tele report patient had A-Fib with [facility]. called. S/W Dr Lincoln. states ok. aware.
--- NOTE | 2019-02-05 23:49 | Consultation ---
DATE OF CONSULTATION: Gastroenterology Consultation REFERRING PHYSICIAN: Kory Lincoln MD REASON FOR CONSULTATION: Abdominal mass. HISTORY OF PRESENT ILLNESS: Ms. Chavez is a very pleasant 83-year-old woman who comes in with shortness of breath and cough as well as generalized weakness. She went to Dr. Peterson's clinic for bowel irregularity. Apparently about a week ago, she had uncontrollable diarrhea that was very black. At that time, this diarrhea was pure liquid and caused the episode of incontinence. It seemed very acidic and seemed to burn her skin. Following this episode, she has not had another bowel movement. She did not take Pepto-Bismol or NSAIDs prior to this. She has a history of NSAID use previously for arthritis, but stopped taking NSAIDs in July and now only uses Tylenol for pain. She usually has bowel movements roughly 2-4 times a week and is prone to constipation at her baseline. Otherwise, she does not have any GI symptoms. Per her family, she is not a complainer and would generally say very little about what is bothering her, so we may underestimate her complaints and symptoms. PAST MEDICAL HISTORY: 1. COPD secondary to previous heavy tobacco use. 2. Hypertension. 3. Chronic diastolic CHF. 4. Hypothyroidism. 5. Atrial fibrillation. 6. Lower extremity lymphedema. 7. Arthritis for which she has had to have injections. FAMILY HISTORY: Positive for COPD. SOCIAL HISTORY: Positive for tobacco. No alcohol. She has good family support. REVIEW OF SYSTEMS: Twelve system review is positive for that mentioned in HPI, otherwise unremarkable. PHYSICAL EXAMINATION: GENERAL: She is alert, pleasant, in no acute distress. HEENT: Pupils are equal, round and reactive to light. NECK: Supple. LUNGS: Coarse, on oxygen. CARDIOVASCULAR: Irregularly irregular. ABDOMEN: Soft, nontender throughout. No rebound, guarding or mass. EXTREMITIES: No lower extremity edema. PSYCH: Intact. NEUROLOGIC: Intact. HEME/ONC: No significant adenopathy. She has some minor ecchymoses. Electronic health record is reviewed for laboratory and radiologic studies as well as medication. ASSESSMENT: 1. Intra-abdominal mass of uncertain etiology in the left lower quadrant, which seems to be external to the bowel. 2. Chronic constipation with an episode a week ago of black diarrhea concerning for GI bleeding. 3. Anemia, normocytic, possibly acute blood loss or other etiology. 4. Electrolyte and renal abnormalities. 5. Occult blood is positive. PLAN: At the current time regarding the melena, it is possible that it could be related to the mass or not related to the mass. Given that it was a large volume of black liquid stool, I think it would be prudent to do an upper endoscopy to rule out that she has some other significant upper GI pathology such as an ulcer. We can plan for this on Thursday. Additionally, she should have a surgical consult, I discussed this with her nurse, Bob. It is likely that the diagnosis of the mass will require surgical evaluation. The patient and family are in agreement. Thank you very much for asking me to see Ms. Chavez. Any questions or concerns, please do not hesitate to contact me. We will follow along with you. Noni Li MD RLS/SORAYA /[id number]
[2019-02-06] VITALS: BP 126/58
[2019-02-06] MEDS: CEFTRIAXONE SOD 1 GM/NS 50 ML 50 ML IV SCH (02:00)
[2019-02-06] MEDS ORDERED: SODIUM CHLORIDE 0.9% 250ML 250 ML ONE (02:48)
[2019-02-06] MEDS: ALBUTEROL/IPRATROPIUM 3 ML NEB NEB SCH ×5 (03:00→23:22)
[2019-02-06 04:00] VITALS: BP 128/60
--- NOTE | 2019-02-06 04:00 | NUR ---
Patient turned q 2 hours and PRN. Denies pain at this time. Continue monitor.
[2019-02-06] MEDS: LEVOTHYROXINE SODIUM 25 MCG TABLET PO SCH (05:13)
[2019-02-06 06:04] LABS: BASOPHILS % 0.1 % (0.0-1.0); EOSINOPHILS % 0.1 % (0.0-6.0); LYMPHOCYTES # (AUTO) 1.4 (1.0-3.2); LYMPHOCYTES % 6.8 % (18.0-39.1); MEAN CORPUSCULAR HEMOGLOBIN 29.8 pg (28-32); MEAN CORPUSCULAR VOLUME 93.2 fL (81-99); MONOCYTES # (AUTO) 1.7 (0.2-0.8); NEUTROPHILS # (AUTO) 17.2 (2.1-6.9); NEUTROPHILS % 83.5 % (38.7-80.0); PLATELET COUNT 616 x10e3/uL (140-360); RED BLOOD COUNT 2.35 x10e6/uL (3.6-5.1); RED CELL DISTRIBUTION WIDTH 12.7 % (11.7-14.4)
[2019-02-06 06:08] LABS: HEMATOCRIT 21.9 % (34.2-44.1)
[2019-02-06 06:14] LABS: ALBUMIN 2.1 g/dL (3.5-5.0); ALBUMIN/GLOBULIN RATIO 0.5 (0.8-2.0); ANION GAP 13.4 mmol/L (8-16); CALCIUM 9.6 mg/dL (8.4-10.2); CREATININE, SERUM 0.98 mg/dL (0.57-1.11); POTASSIUM 4.4 mmol/L (3.5-5.1)
[2019-02-06 06:54] LABS: FERRITIN 103.11 ng/mL (4.63-204.00)
[2019-02-06] MEDS: ALBUTEROL SULFATE HFA 8GM INHALATION AEROSOL INH SCH (07:01)
[2019-02-06 07:03] LABS: LYMPHOCYTES % (MANUAL) 6 % (19-48); MONOCYTES % (MANUAL) 5 % (3.4-9.0); MYELOCYTES % (MANUAL) 1 % (0-0); NEUTROPHILS % (MANUAL) 87 % (40-74)
[2019-02-06 07:04] LABS: HYPOCHROMASIA MODERATE; PLATELET ESTIMATE ADEQUATE; PLATELET MORPHOLOGY COMMENT NORMAL; RBC MORPHOLOGY COMMENT NORMAL
[2019-02-06] MEDS ORDERED: SODIUM CHLORIDE 0.9% 250ML 250 ML IV ONE (07:15)
[2019-02-06] MEDS ORDERED: FUROSEMIDE INJ 10 MG/ML 2 ML VIAL IV PRN (07:15)
--- NOTE | 2019-02-06 07:16 | NUR ---
Report abnormal labs to Dr Lincoln. Orders received and given to incoming nurse.
--- NOTE | 2019-02-06 07:30 | NUR ---
pt up in bed awake ,denies pain,assisted up to bsc,tele in place afib 94
[2019-02-06 07:58] VITALS: BP 122/58
[2019-02-06 08:00] VITALS: BP 122/58
[2019-02-06 08:01] LABS: BASOPHILS % 0.1 % (0.0-1.0); EOSINOPHILS % 0.1 % (0.0-6.0); HEMOGLOBIN 7.1 g/dL (12.0-16.0); LYMPHOCYTES # (AUTO) 1.6 (1.0-3.2); MEAN CORPUSCULAR HEMOGLOBIN 29.7 pg (28-32); MEAN CORPUSCULAR HGB CONC 31.3 g/dL (31-35); MONOCYTES # (AUTO) 1.7 (0.2-0.8); MONOCYTES % 8.4 % (4.4-11.3); NEUTROPHILS # (AUTO) 16.6 (2.1-6.9); NEUTROPHILS % 82.1 % (38.7-80.0); PLATELET COUNT 538 x10e3/uL (140-360); RED BLOOD COUNT 2.39 x10e6/uL (3.6-5.1); RED CELL DISTRIBUTION WIDTH 12.6 % (11.7-14.4)
[2019-02-06 08:11] LABS: HEMATOCRIT 22.7 % (34.2-44.1)
[2019-02-06] MEDS: CEFEPIME 1GM/NS 0.9% 50 ML 50 ML IV SCH ×2 (08:28→19:15)
[2019-02-06] MEDS ORDERED: FUROSEMIDE 20 MG TAB PO SCH (09:00)
[2019-02-06] MEDS: METOPROLOL SUCCINATE 25 MG TAB XL PO SCH (09:15)
[2019-02-06] MEDS: GABAPENTIN 100 MG CAP PO SCH ×2 (09:15→17:08)
[2019-02-06] MEDS: FAMOTIDINE 20 MG/2 ML VIAL IV SCH ×2 (09:15→17:08)
[2019-02-06] MEDS: FUROSEMIDE INJ 10 MG/ML 4 ML VIAL IV SCH ×2 (09:15→20:05)
--- NOTE | 2019-02-06 10:25 | NUR ---
BLOOD TRANFUSION STARTED,VS112/66,115,18,98.7
--- NOTE | 2019-02-06 10:45 | NUR ---
UNABLE TO DO BP WITH MACHINE MANUAL BP 120/60,18,102
[2019-02-06 12:00] VITALS: BP 122/62
--- NOTE | 2019-02-06 12:16 | Consultation ---
DATE OF CONSULTATION: 02/06/2019 REASON FOR CONSULTATION: Incidentally found mass of the left lower quadrant of the abdomen. HISTORY OF PRESENT ILLNESS: The patient is an 83-year-old female with known severe COPD, admitted to the [facility] emergency room because of worsening shortness of breath and cough. She used to be heavy smoker. The patient was found to have pneumonia. A CT scan of the abdomen and pelvis was ordered because of the chronic history of constipation and it showed a left lower quadrant mass. The patient is currently being evaluated by GI because of anemia. She is scheduled to undergo EGD by Dr. Li tomorrow. The patient has as previously stated of chronic constipation. She denies any abdominal pain, nausea, or vomiting. PAST MEDICAL HISTORY: Significant for in addition to the COPD, congestive heart failure, atrial fibrillation, hypertension. She has not had any previous abdominal surgeries. The patient is currently undergoing blood transfusion because of anemia. PHYSICAL EXAMINATION: GENERAL: Reveals an 83-year-old female. At this point, the patient denies any abdominal pain. She complains of shortness of breath. ABDOMEN: Soft, protuberant abdomen without any peritoneal findings. RECTAL: Reveals an empty vault. No blood. No stool. No masses. ASSESSMENT: Incidentally found abdominal mass. Severe chronic obstructive pulmonary disease, multiple medical problems. The patient as per her request is DNR. PLAN: I suspect that this mass is an incidental finding and her GI symptoms are not related to it. The mass appears to be extraluminal and in the mesentery. My recommendation would be to continue treating her pneumonia and chronic obstructive pulmonary disease. She is currently undergoing a GI evaluation as per Dr. Li. Once she has completed her GI evaluation, then she wants to have a biopsy of the mass. Hopefully, this mass can be biopsied percutaneously under CT or ultrasonographic guidance. Once the results of the mass are known, then further recommendations could be made; it appears to me that at this time, she really does not want any aggressive surgical intervention of any type. Thank you very much for the courtesy of this consultation. MD MARGARITA Ibanez/SORAYA /[id number]
[2019-02-06] MEDS: FUROSEMIDE INJ 10 MG/ML 4 ML VIAL IV PRN (13:13)
--- NOTE | 2019-02-06 13:18 | NUR ---
TRANSFUSION FINISHED 131/61,97,16,97.6,NO REACTION NOTED,LASIX GIVEN ORDERED
--- NOTE | 2019-02-06 13:29 | Diagnostic Imaging Report ---
EXAMINATION: CHEST SINGLE (PORTABLE) INDICATION: ^COPD and possible pneumonia ^[id number] ^1250 ^Y COMPARISON: Chest radiograph 02/04/[address] abdomen and pelvis 02/04/2019 FINDINGS: AP view TUBES and LINES: None. LUNGS: Lungs are well inflated. Bilateral interstitial edema, increased. No new consolidations. Bilateral emphysema. PLEURA: Trace bilateral pleural effusions. HEART AND MEDIASTINUM: Stable cardiomegaly. Atherosclerotic calcifications of the aortic arch. Possible ectasia of the ascending thoracic aorta, unchanged. BONES AND SOFT TISSUES: No acute osseous lesion. Soft tissues are unremarkable. UPPER ABDOMEN: No free air under the diaphragm. IMPRESSION: Mild worsening bilateral interstitial edema and trace pleural effusions. No new consolidations. Signed by: Dr. Janneth Hollingsworth M.D. on 02/06/2019 1:26 PM
--- NOTE | 2019-02-06 13:30 | NUR ---
PT SOB ON AMBULTING STATES VERY WEAK,PURE WICK APPLIED,
--- NOTE | 2019-02-06 14:05 | NUR ---
UNABLE TO START BLOOD AT THIS TIME ,TEMP 101.2,PAGED DR MORIN
--- NOTE | 2019-02-06 14:09 | NUR ---
PT STATES HAS TO URINATE REFUSES TO USE PUREWICK ,PUT ON BEDPAN
[2019-02-06] MEDS: ACETAMINOPHEN 325 MG TAB PO PRN (14:10)
--- NOTE | 2019-02-06 14:30 | NUR ---
tylenol given temp 101.6
--- NOTE | 2019-02-06 14:30 | NUR ---
spoke with dr rosado re; temp orders written
[2019-02-06] MEDS: METRONIDAZOLE 500MG/NS 100ML 100 ML IV SCH ×2 (15:07→21:50)
[2019-02-06 16:00] VITALS: BP 91/53
[2019-02-06] MEDS ORDERED: RIVAROXABAN 10 MG TABLET PO SCH (17:00)
--- NOTE | 2019-02-06 17:26 | NUR ---
pt temp 99.6 denies pain.
[2019-02-06] MEDS: MECLIZINE HCL 12.5 MG TAB PO SCH (19:00)
--- NOTE | 2019-02-06 19:26 | NUR ---
Received change of shift report from AM nurse. Walking rounds completed. Patient in bed rsting quitly at this time. No noted distress or discomfort.
--- NOTE | 2019-02-06 19:28 | NUR ---
Received change of shift report from AM nurse. Walking rounds completed. Patient in bed resting quitly at this time. No noted distress or discomfort.
[2019-02-06] MEDS ORDERED: FUROSEMIDE INJ 10 MG/ML 4 ML VIAL IV ONE (23:30)
[2019-02-06] MEDS ORDERED: VANCOMYCIN 1GM/NS 250 ML 250 ML IV ONE (23:30)
[2019-02-06] MEDS ORDERED: METOPROLOL TARTRATE INJ 1 MG/ML VIAL IV ONE (23:30)
[2019-02-07] VITALS (8 sets, daily range): BP systolic 98–168; BP diastolic 54–74
--- NOTE | 2019-02-07 | NUR ---
S/W Dr Lincoln covering for Baccardo. Informed of temp 103.1, HR 145-165. Change in her condition from yesterday. Orders received and completed. stated to give patient blood that she needs it,
[2019-02-07] MEDS: ACETAMINOPHEN 325 MG TAB PO PRN ×2 (01:30→23:40)
--- NOTE | 2019-02-07 03:00 | NUR ---
Received change of shift report from AM nurse. Walking rounds completed. Patient in bed resting quitly at this time. No noted distress or discomfort.
[2019-02-07] MEDS: ALBUTEROL/IPRATROPIUM 3 ML NEB NEB SCH ×6 (03:05→23:20)
[2019-02-07] MEDS: LEVOTHYROXINE SODIUM 25 MCG TABLET PO SCH (05:20)
--- NOTE | 2019-02-07 05:37 | NUR ---
Patient receiving blood. Tolerating well.
[2019-02-07] MEDS: METRONIDAZOLE 500MG/NS 100ML 100 ML IV SCH ×3 (06:00→22:03)
[2019-02-07] MEDS: FUROSEMIDE INJ 10 MG/ML 4 ML VIAL IV PRN (06:29)
--- NOTE | 2019-02-07 06:52 | NUR ---
RECEIVED PATIENT RESTING IN BED. RESPIRATIONS EVEN AND UNLABORED, NO ACUTE DISTRESS NOTED. DENIES PAIN OR DISCOMFORT AT THIS TIME. CALL LIGHT WITHIN REACH. BED IN THE LOWEST POSITION.
[2019-02-07] MEDS: MECLIZINE HCL 12.5 MG TAB PO SCH ×2 (07:00→18:45)
[2019-02-07] MEDS: GABAPENTIN 100 MG CAP PO SCH ×2 (09:00→16:58)
[2019-02-07] MEDS: CEFEPIME 1GM/NS 0.9% 50 ML 50 ML IV SCH ×2 (09:16→18:45)
[2019-02-07] MEDS: FUROSEMIDE INJ 10 MG/ML 4 ML VIAL IV SCH ×2 (09:16→21:05)
[2019-02-07] MEDS: FAMOTIDINE 20 MG/2 ML VIAL IV SCH ×2 (09:17→16:58)
--- NOTE | 2019-02-07 09:20 | NUR ---
PATIENT C/O FEELING LIKE SHE IS NOT EMPTYING BLADDER, BLADDER SCAN SHOWED 933ML. NOTIFIED DR. CARROLL, NEW ORDER RECEIVED TO INSERT DUNN CATHETER.
--- NOTE | 2019-02-07 09:42 | NUR ---
CALLED DR. SANTOS IN REGARDS TO PATIENT BEING NPO AND NOT BEING IN THE SCHEDULE FOR EGD.
--- NOTE | 2019-02-07 10:20 | NUR ---
INSERTED DUNN CATHETER, 1500 ML OF URINE NOTED ON DUNN BAG.
--- NOTE | 2019-02-07 10:41 | Progress Note ---
DATE: 02/07/2019 SUBJECTIVE: Ms. Chavez is an 83-year-old female with history of COPD, former smoker, hypertension, chronic diastolic CHF, hypothyroid, chronic atrial fibrillation, chronic lower extremity lymphedema, started feeling a weak for like two weeks. She has some mild cough and fever. She was started on antibiotics as an outpatient. She states she was not feeling good, so she decided to come to the emergency room. White count was elevated. The patient was anemic, received blood transfusion. CT of the abdomen and pelvis shows cholelithiasis, constipation and lesion concerning for a mass and with not very clear etiology. PHYSICAL EXAMINATION: GENERAL: Today, she is awake and alert. VITAL SIGNS: Temperature is 98.7, blood pressure is 140/67. HEART: Irregularly irregular. LUNGS: Poor inspiratory effort. ABDOMEN: Distended. She has urinary retention with a palpable bladder, so we are going to put a Enriquez catheter. EXTREMITIES: Lower extremities, the edema and the erythema are better. LABORATORY DATA: On the blood work; white count is 20.26, hemoglobin is 7.1, hematocrit 22.7. Potassium is 4.4, creatinine is 0.98, glucose is 124. Urine shows 6 to 10 white blood cells. Blood cultures are pending. Urine culture shows no growth. Chest x-ray shows worsening of the bilateral interstitial edema and trace pleural effusions. Abdominal and pelvic CT shows cholelithiasis, mild hepatomegaly and an intraabdominal mass to rule out metastasis, lymphoma, or carcinoma. ASSESSMENT: On this patient is: 1. Anemia secondary to gastrointestinal bleed. 2. Positive stool for occult blood. 3. Chronic obstructive pulmonary disease exacerbation. 4. Concerning for bilateral pneumonia. 5. Acute on chronic diastolic congestive heart failure. 6. Abdominal mass, etiology unknown. 7. Chronic atrial fibrillation. 8. Chronic constipation. 9. Urinary retention. 10. Possible bilateral pneumonia. PLAN: At present time is to admit the patient to the hospital. Anticoagulation should be on hold due to the GI bleed. We are going to continue on antibiotics. Continue to monitor respiratory status. We are going to get Infectious Disease consult with Dr. Carias. All this was discussed with the patient and family members at bedside. All questions were answered to satisfaction. The overall prognosis of the patient is guarded due to all her medical conditions. MD NORMAN Barfield/SORAYA /[id number]
--- NOTE | 2019-02-07 10:42 | NUR ---
PAGED DR. SANTOS A SECOND TIME IN REGARDS TO PATIENT BEING NPO AND NOT ON THE SCHEDULE FOR EGD.
[2019-02-07] MEDS: METOPROLOL SUCCINATE 25 MG TAB XL PO SCH (12:03)
[2019-02-07 14:08] LABS: BASOPHILS % 0.2 % (0.0-1.0); EOSINOPHILS # (AUTO) 0.1 (0.0-0.4); EOSINOPHILS % 0.3 % (0.0-6.0); HEMATOCRIT 28.3 % (34.2-44.1); HEMOGLOBIN 9.3 g/dL (12.0-16.0); LYMPHOCYTES # (AUTO) 1.4 (1.0-3.2); MEAN CORPUSCULAR HEMOGLOBIN 29.2 pg (28-32); MEAN CORPUSCULAR HGB CONC 32.9 g/dL (31-35); MONOCYTES # (AUTO) 1.7 (0.2-0.8); MONOCYTES % 8.4 % (4.4-11.3); NEUTROPHILS # (AUTO) 16.3 (2.1-6.9); PLATELET COUNT 563 x10e3/uL (140-360); RED BLOOD COUNT 3.18 x10e6/uL (3.6-5.1); RED CELL DISTRIBUTION WIDTH 15.2 % (11.7-14.4)
[2019-02-07 14:38] LABS: ALBUMIN/GLOBULIN RATIO 0.5 (0.8-2.0); ANION GAP 15.6 mmol/L (8-16); CALCIUM 9.4 mg/dL (8.4-10.2); CREATININE, SERUM 1.39 mg/dL (0.57-1.11); POTASSIUM 3.6 mmol/L (3.5-5.1)
--- NOTE | 2019-02-07 15:07 | Consultation ---
DATE OF CONSULTATION: REASON FOR CONSULTATION: Fever, chills, UTI. HISTORY OF PRESENT ILLNESS: This patient who is an 83-year-old white female with history of obesity, history of COPD, history of bilateral lower extremities lymphedema. Apparently, she also have a renal mass. The patient was here on 02/05/2019 with fever, chills and shortness of breath. The patient who lives at home with her daughter apparently comes in now with weakness and not feeling well. She was sitting in the restaurant and was not able to stand up, they took her to the doctors office. She felt really bad, had to be admitted. The patient has history of COPD, history of previous heavy tobacco smoker, quit in 2018, history of hypertension with heart disease, chronic diastolic congestive heart failure, hypothyroidism, chronic atrial fibrillation, chronic bilateral lower extremities lymphedema. PAST SURGICAL HISTORY: Denies. ALLERGIES: PENICILLIN AND SULFA. SOCIAL HISTORY: As above. Currently no smoking, drug abuse, or alcohol abuse. She lives with her daughter. MEDICATIONS: At home she is on albuterol, furosemide, gabapentin. She was on levofloxacin, levothyroxine, Xarelto. REVIEW OF SYSTEMS: GENERAL: She is not feeling well. The family is telling me that she has problem with urination. She cannot control her bladder very well. The patient was seen by Gastroenterology for abdominal mass left lower quadrant. She has been seen by GI. She was seen by Dr. Bowie. The patient was admitted because there was concern that she is fatigued from sepsis from UTI, so she was admitted. LABORATORY DATA: On admission, her white count was 17.44, hemoglobin 7.8, hematocrit 24. Sodium 132, potassium 4.3, creatinine 1.15, but creatinine came down to 0.98. Her urinalysis showed 6 to 10 WBC. Blood cultures still pending. The patient was started on cefepime, metronidazole. PHYSICAL EXAMINATION: GENERAL: She is just weak, not feeling well in general. VITAL SIGNS: There is no specific fever or chills, although she had a temperature of 103 earlier today. HEENT: There are no visual changes or hearing changes. GI: There is no nausea. No vomiting. No diarrhea. CARDIAC: There is no arrhythmia. NEURO: No seizure activity. SKIN: There are no other rashes except the lower extremity. Her lab data also reviewed. Chest x-ray showed mild worsening bilateral edema. She had CT scan of abdomen and pelvis, it showed cholelithiasis, hepatomegaly, mild. abdominal mass of uncertain etiology. IMPRESSION: 1. Fever, leukocytosis. Source is unclear. She is currently on cefepime and Flagyl. I agree with blood cultures and urine cultures. 2. Abdominal abscess, recommend CT guided biopsy. 3. Obesity. 4. Anemia of chronic disease. 5. Chronic obstructive pulmonary disease. 6. Chronic atrial fibrillation. 7. Chronic constipation. 8. Concern about fluid overload, congestive heart failure. Continue with antibiotic. We will discuss with Surgery and Internal Medicine about CT-guided biopsy if possible. We will follow. MD SHERINE Cole/SORAYA /[id number]
--- NOTE | 2019-02-07 19:59 | NUR ---
REPORT GIVEN TO ONCOMING NURSE, WALKING ROUNDS DONE. PATIENT IS RESTING IN BED. FAMILY MEMBERS AT BEDSIDE. CALL LIGHT WITHIN REACH. BED IN THE LOWEST POSITION.
--- NOTE | 2019-02-07 20:17 | NUR ---
PT IS RESTING IN BED WITH DAUGHTER AT BEDSIDE. RESPIRATION IS EVEN AND UNLABORED, NO DISTRESS NOTED. BED IN THE LOWEST POSITION, LOCKED, AND CALL LIGHT WITHIN REACH. WILL CONTINUE TO MONITOR.
[2019-02-07] MEDS: IRON SUCROSE 200 MG in SODIUM CHLORIDE 0.9% 100 ML 100 ML IV SCH (21:05)
[2019-02-08] VITALS (8 sets, daily range): BP systolic 94–142; BP diastolic 53–66
--- NOTE | 2019-02-08 00:49 | Progress Note ---
DATE: 02/07/2019 GI Progress Report SUBJECTIVE: The patient reports no abdominal pain. Tolerating oral diet. No nausea or vomiting. REVIEW OF SYSTEMS: GENERAL: No fever or chills. CVS: No chest pain or palpitation. RESPIRATORY: No cough or expectoration. MEDICATIONS: Reviewed as per SEP. PHYSICAL EXAMINATION: VITAL SIGNS: Temperature 96.1, pulse 94, respirations 18, blood pressure 98/54, oxygen saturation 98% on 2 L of nasal cannula. GENERAL: Not in any acute distress. Oral mucosa is moist. ABDOMEN: Soft, nondistended, nontender. No palpable mass or hernia. Positive bowel sounds. LABORATORY DATA: Hemoglobin 9.3 from 7.1, WBC 19.90 down from 20.26, and platelet count of 563. Electrolytes normal. BUN 32. Creatinine has gone up to 1.39 from 0.98. Stool occult blood positive. Chest CT is pending. ASSESSMENT: No more melena noticed. Hemoglobin remains stable post blood transfusion. Other comorbidities includes chronic obstructive pulmonary disease, atrial fibrillation, not on any anti-coagulant. Xarelto is on hold. Left lower quadrant intra-abdominal mass, likely extraintestinal. Surgery has follow has followed the patient. Once the patient's current sepsis is resolved and upper endoscopy to evaluate the melena has been done. Then, the patient can undergo ultrasound/CT scan-guided biopsy of this mass or laparoscopic biopsy as well. PLAN: N.p.o. past midnight and upper endoscopy tomorrow. Continue to hold Xarelto till then. Dwain Peterson MD SA/SORAYA /[id number]
[2019-02-08] MEDS: ALBUTEROL/IPRATROPIUM 3 ML NEB NEB SCH ×6 (02:17→23:22)
[2019-02-08] MEDS: METRONIDAZOLE 500MG/NS 100ML 100 ML IV SCH ×3 (05:42→21:39)
[2019-02-08] MEDS: LEVOTHYROXINE SODIUM 25 MCG TABLET PO SCH (05:43)
[2019-02-08 06:04] LABS: BASOPHILS # (AUTO) 0.1 (0.0-0.1); BASOPHILS % 0.3 % (0.0-1.0); EOSINOPHILS # (AUTO) 0.1 (0.0-0.4); EOSINOPHILS % 0.6 % (0.0-6.0); HEMATOCRIT 30.4 % (34.2-44.1); HEMOGLOBIN 9.5 g/dL (12.0-16.0); LYMPHOCYTES # (AUTO) 1.5 (1.0-3.2); LYMPHOCYTES % 7.6 % (18.0-39.1); MEAN CORPUSCULAR HEMOGLOBIN 28.5 pg (28-32); MEAN CORPUSCULAR HGB CONC 31.3 g/dL (31-35); MEAN CORPUSCULAR VOLUME 91.3 fL (81-99); MONOCYTES # (AUTO) 1.4 (0.2-0.8); MONOCYTES % 6.9 % (4.4-11.3); NEUTROPHILS # (AUTO) 16.1 (2.1-6.9); NEUTROPHILS % 82.1 % (38.7-80.0); PLATELET COUNT 541 x10e3/uL (140-360); RED BLOOD COUNT 3.33 x10e6/uL (3.6-5.1); RED CELL DISTRIBUTION WIDTH 15.1 % (11.7-14.4)
[2019-02-08 06:26] LABS: ANION GAP 18.5 mmol/L (8-16); CALCIUM 9.7 mg/dL (8.4-10.2); CREATININE, SERUM 1.36 mg/dL (0.57-1.11); POTASSIUM 3.5 mmol/L (3.5-5.1)
[2019-02-08] MEDS: CEFEPIME 1GM/NS 0.9% 50 ML 50 ML IV SCH ×2 (06:27→18:12)
[2019-02-08 06:49] LABS: FREE T4 (FREE THYROXINE) 1.05 ng/dL (0.8-1.8); THYROID STIMULATING HORMONE 2.106 uIU/mL (0.350-4.940)
--- NOTE | 2019-02-08 06:56 | NUR ---
RECEIVED PATIENT RESTING IN BED. NO ACUTE DISTRESS NOTED. NO S/S OF PAIN OR DISCOMFORT NOTED AT THIS TIME. DAUGHTER AT BEDSIDE. CALL LIGHT WITHIN REACH. BED IN THE LOWEST POSITION.
[2019-02-08] MEDS: MECLIZINE HCL 12.5 MG TAB PO SCH ×2 (07:00→18:12)
[2019-02-08 07:01] LABS: FOLATE 9.6 ng/mL (7.0-15.4)
[2019-02-08] MEDS: FUROSEMIDE INJ 10 MG/ML 4 ML VIAL IV SCH ×2 (08:43→21:00)
[2019-02-08] MEDS: FAMOTIDINE 20 MG/2 ML VIAL IV SCH ×2 (08:44→17:04)
--- NOTE | 2019-02-08 08:49 | Diagnostic Imaging Report ---
EXAM: CT Chest WITHOUT intravenous contrast 02/07/2019 6:22 PM INDICATION: Shortness of breath, COPD COMPARISON: Chest radiograph of 02/06/2019 TECHNIQUE: Chest was scanned utilizing a multidetector helical scanner from the lung apex through the level of the adrenal glands without administration of IV contrast. Coronal and sagittal reformations were obtained. Routine protocol was performed. IV CONTRAST: None RADIATION DOSE: Total DLP: 496.8 mGy*cm. Dose modulation, iterative reconstruction, and/or weight based adjustment of the mA/kV was utilized to reduce the radiation dose to as low as reasonably achievable. COMPLICATIONS: None FINDINGS: LINES/ TUBES: None. LUNGS AND AIRWAYS: There is a 3.5 x 3.3 x 2.8 cm mass in the posterior right upper lobe (series 3 image 33) which abuts the pleura posteriorly. There are multiple satellite nodules: An 8 mm nodule anterior to the primary mass in the right upper lobe (series 3 image 36), an 8 mm spiculated nodule in the posterior right upper lobe (series 3 image 59) and a 7 mm nodule in the right middle lobe (series 3 image 86). There is bilateral lower lobe predominant dependent subsegmental atelectasis. Diffuse bronchial wall thickening. A 7 mm structure lies along the posterior wall of the right main bronchus. The remainder of the central airways are patent. PLEURA: No pleural effusion. No pneumothorax. HEART AND MEDIASTINUM: The thyroid gland appears heterogeneous with no focal nodule. There is extensive mediastinal lymphadenopathy from a 1.5 cm paratracheal superior mediastinal lymph node to multiple enlarged AP window lymph nodes measuring up to 2.8 x 2.3 cm (series 2 image 44) and right hilar lymphadenopathy measuring up to 3.1 x 2.3 cm (series 2 image 52). No axillary, subpectoral or internal mammary lymphadenopathy. There is multichamber cardiomegaly. The main pulmonary artery measures up to 3.8 cm. No pericardial effusion. Atherosclerotic calcifications involve the coronary arteries and thoracic aorta. UPPER ABDOMEN: Limited noncontrast images of the upper abdomen demonstrate no focal abnormality of the partially visualized liver, spleen, or superior left kidney. Please refer to the report from the recently performed CT abdomen and pelvis for detailed discussion of intra-abdominal findings. BONES: No acute fracture or dislocation. Moderate to severe multilevel degenerative changes of the visualized spine. Diffuse osteopenia. SOFT TISSUES: Unremarkable. IMPRESSION: Right upper lobe 3.5 x 3.3 x 2.8 cm mass and satellite nodules in the right upper and right middle lobes along with right hilar and mediastinal lymphadenopathy. Findings are highly concerning for primary pulmonary malignancy with ipsilateral pulmonary, hilar and mediastinal cassie metastases. 7mm structure along the posterior wall of the right main bronchus may represent dependent mucus plugging versus less likely tumor involvement. Multichamber cardiomegaly and coronary artery atherosclerosis. Signed by: Za Tatum MD on 02/08/2019 8:46 AM
[2019-02-08] MEDS: GABAPENTIN 100 MG CAP PO SCH ×2 (09:00→17:04)
[2019-02-08] MEDS: METOPROLOL SUCCINATE 25 MG TAB XL PO SCH ×2 (09:00→17:04)
[2019-02-08] MEDS ORDERED: ONDANSETRON HCL INJ 2MG/ML 2ML 2 MG/ML VIAL IV PRN (09:30)
[2019-02-08 09:31] LABS: BAND NEUTROPHILS % (MANUAL) 1 %; EOSINOPHILS % (MANUAL) 1 % (0-7); LYMPHOCYTES % (MANUAL) 10 % (19-48); MONOCYTES % (MANUAL) 8 % (3.4-9.0); NEUTROPHILS % (MANUAL) 80 % (40-74)
[2019-02-08 09:33] LABS: PLATELET ESTIMATE MODERATELY INCREASED; PLATELET MORPHOLOGY COMMENT FEW LARGE; RBC MORPHOLOGY COMMENT NORMAL
--- NOTE | 2019-02-08 10:16 | Progress Note ---
DATE: 02/08/2019 SUBJECTIVE: Ms. Chavez is an 83-year-old female with history of COPD, former smoker, hypertension, chronic diastolic CHF, chronic atrial fibrillation, hypothyroid, and chronic lower extremity lymphedema, who start feeling weak from 2 weeks prior to admission, then she developed some cough and fever and she was started on antibiotics as an outpatient. She did not improve, so she decided to come to the emergency room where she was found to be anemic. She did receive a blood transfusion and white count was elevated. CT of the abdomen and pelvis showed cholelithiasis, constipation and a mass concerning for malignancy. PHYSICAL EXAMINATION: GENERAL: Today, she is awake and alert. She is feeling a little better. VITAL SIGNS: Temperature is a 101.1 and blood pressure is 98/53. HEART: Irregularly irregular. LUNGS: Decreased breath sounds bilaterally. ABDOMEN: Distended and soft. EXTREMITIES: Lower extremity, bilateral edema LABORATORY DATA: White count today is 19.64, hemoglobin is 9.5, and hematocrit is 30.4. Potassium 3.5, creatinine is 1.36. Urine shows 6 to 10 white blood cells. Blood cultures so far no growth. Urine culture so far no growth, after incubation. She had an abdominal and pelvic CT that shows cholelithiasis, a circumscribed intraabdominal mass of uncertain etiology. Considerations include metastasis, lymphoma carcinoid. She also has colonic diverticulosis without diverticulitis. She went on so for chest CT, we do not have the results yet. ASSESSMENT: 1. Anemia secondary to gastrointestinal bleed. 2. Positive stool for occult blood. 3. Chronic obstructive pulmonary disease exacerbation. 4. Concern about pneumonia. We are awaiting for chest CT. 5. Lxjsi-rh-ajusazk diastolic congestive heart failure. 6. Abdominal mass, rule out malignancy versus abscess. 7. Chronic atrial fibrillation. 8. Chronic constipation. 9. Urinary retention. 10. Chronic kidney disease, stage 3. 11. Hypothyroidism. 12. Chronic lower extremity lymphedema. PLAN: Plan at present time with this patient is anticoagulation is on hold due to the bleeding. She is going to go for EGD today. She was seen by Infectious Disease and she is on IV antibiotics. She also was seen by surgeon. No surgery at present time. Apparently whatever the mass is, is not accessible area for a CT-guided biopsy, discussed with Dr. Bowie. We are going to continue her home medications and continue to monitor for a fever or blood loss. All this was discussed with the patient and daughter at bedside. All questions were answered to satisfaction. The prognosis of the patient remains guarded. MD NORMAN Barfield/SORAYA /[id number]
--- NOTE | 2019-02-08 11:43 | NUR ---
PATIENT OFF THE UNIT FOR PROCEDURE AT THIS TIME.
--- NOTE | 2019-02-08 12:06 | Progress Note ---
DATE: 02/08/2019 Cardiology Consultation REASON FOR CONSULTATION: Atrial fibrillation. HISTORY OF PRESENT ILLNESS: Ms. Chavez is a pleasant 83-year-old woman, well known from previous admissions with history of advanced COPD, chronic diastolic heart failure, chronic lymphedema, and atrial fibrillation, who presents with occult blood in stools and subjective fevers and abdominal discomfort with a lesion on CT with a differential of abscess versus mass, for which the patient has been undergoing evaluation for consideration of CT-guided biopsy by IR versus surgical exploration versus conservative management. Kirti does not seem to be eager to undergo any invasive procedures at this point in time. In the past, we have discussed further evaluation from a cardiac standpoint, however, she has declined such evaluations, opting for conservative management instead. She has been taking Xarelto at home, which is currently discontinued for evaluation of positive occult blood stool with EGD planned for today. She feels overall better from her shortness of breath standpoint compared to her previous admission, but has residual stable dyspnea on exertion to moderate activity related in part to COPD as well as chronic diastolic heart failure. She reports no chest discomfort. REVIEW OF SYSTEMS: A 12-system review is negative except for as noted above. ALLERGIES: PENICILLIN, SULFA, AND TETRACYCLINE. PAST MEDICAL HISTORY: COPD, hypertension, chronic lymphedema, chronic diastolic heart failure. SOCIAL HISTORY: Former smoker. No alcohol or drugs. FAMILY HISTORY: Noncontributory. PHYSICAL EXAMINATION: VITAL SIGNS: Temperature 98.9, heart rate 108, respiratory rate 18, blood pressure 101/55, O2 saturation 96% on nasal cannula 2 L/minute. GENERAL: In no acute distress, alert. NECK: No JVD. CHEST: Clear to auscultation. CARDIOVASCULAR: Irregularly irregular rate and rhythm, normal S1 and S2, no S3, no S4, no murmurs or rubs. ABDOMEN: Soft, nontender. EXTREMITIES: 1+ edema. Chronic lymphedema. Hyperpigmented changes and thickened skin, peeled orange appearance. CARDIOVASCULAR MEDICATIONS: Reviewed. 1. Cefepime. 2. Furosemide 40 mg IV q.12 hours. 3. Metoprolol succinate 25 mg b.i.d. LABORATORY DATA: White blood cells 19.6, hemoglobin 9.5, platelets 541. INR 1.4. Creatinine 1.3. Blood cultures, no growth after 24 hours from 02/06/2019. ASSESSMENT: 1. Anemia in the setting of GI bleed. 2. Positive occult blood in stools. 3. Xbciy-vy-ckycdkh diastolic heart failure. 4. Chronic obstructive pulmonary disease. 5. Chronic atrial fibrillation. 6. Chronic kidney disease, stage 3. 7. Hypertension. 8. Hypothyroidism. 9. Chronic lymphedema. 10. Abdominal mass, undergoing evaluation. Differential includes malignancy versus abscess. RECOMMENDATIONS: 1. The patient will be at elevated risk for adverse cardiovascular outcomes with noncardiac surgery. 2. For now, continue to hold anticoagulation while GI workup is underway for anemia of blood loss. 3. Continue beta-fabricio. 4. Continue diuretics as needed. We will follow closely with you. Thank you for the opportunity to participate in the care of Ms Chavez. Please feel free to call with any questions. MD DERRICK Hurt/SORAYA /[id number]
--- NOTE | 2019-02-08 13:24 | NUR ---
PATIENT BACK TO ROOM, PROCEDURE NOT DONE.
--- NOTE | 2019-02-08 13:49 | NUR ---
PAGED DR. NIELSEN IN REGARDS TO EGD NOT BEING DONE FOR FURTHER ORDERS. WAITING FOR CALL BACK.
--- NOTE | 2019-02-08 15:00 | NUR ---
PER DR. NIELSEN, PATIENT WILL BE SCHEDULED TOMORROW. NOTIFIED FALSEWORK [employer]DER TO SCHEDULE.
--- NOTE | 2019-02-08 15:11 | NUR ---
PT DISCUSSED IN BARRIER ROUNDS; VANNA CONSULTED FOR A FIB, IN 150'S, POSITIVE OCCULT BLOOD, EGD WITH BIOPSY SCHEDULED, 2 ABX, MONA, CT OF CHEST SHOWS RIGHT MASS, GETTING CARCINOGEN LABS, POSSIBLE DISCHARGE SET FOR TOMORROW
--- NOTE | 2019-02-08 17:04 | Progress Note ---
DATE: SUBJECTIVE: Ms. Chavez is doing better. There are no new complaints. Had a family meeting today. Discussed the case with Internal Medicine and Surgery. The patient has no complaints now. PHYSICAL EXAMINATION: GENERAL: She is currently alert, does not seem in acute distress. VITAL SIGNS: Stable, currently afebrile HEENT: She is not icteric. NECK: Supple. CHEST: Clear bilaterally. COR: S1 and S2. ABDOMEN: Soft. Bowel sounds present. No tenderness. EXTREMITIES: No edema. LABORATORY DATA: Her blood cultures are negative. Her white count is 19.64, hemoglobin 9.5. Sodium 139, potassium 3.[address] of the chest showed right upper lobe mass as well as nodules in the right upper and middle lobe concerning for pulmonary malignancy. IMPRESSION: 1. Fever, worrisome if tumor fever versus other. Discussed with the family. We will proceed with CT-guided biopsy. We will discuss with Radiology. 2. We will change to Rocephin and azithromycin. 3. Her fever could be due from that. 4. Anemia. GI workup is in progress. 5. Obesity. 6. Further recommendations to follow. MD SHERINE Cole/SORAYA /[id number]
--- NOTE | 2019-02-08 19:11 | NUR ---
REPORT GIVEN TO ONCOMING NURSE, WALKING ROUNDS DONE. PATIENT IS RESTING IN BED. NO ACUTE DISTRESS NOTED. FAMILY MEMBERS AT BEDSIDE. CALL LIGHT WITHIN REACH. BED IN THE LOWEST POSITION.
--- NOTE | 2019-02-08 19:18 | NUR ---
PT IS RESTING IN BED WITH FAMILY AT BEDSIDE. RESPIRATION IS EVEN AND UNLABORED, NO DISTRESS NOTED. BED IN THE LOWEST POSITION, LOCKED, AND CALL LIGHT WITHIN REACH. WILL CONTINUE TO MONITOR.
[2019-02-08] MEDS: IRON SUCROSE 200 MG in SODIUM CHLORIDE 0.9% 100 ML 100 ML IV SCH (21:00)
--- NOTE | 2019-02-08 21:04 | NUR ---
PER DR. ALESSIO NIELSEN CANCEL THE EGD THAT WAS SCHEDULE FOR TOMORROW. WILL CONTINUE TO MONITOR.
--- NOTE | 2019-02-08 21:18 | NUR ---
PER DR Caridad RUZI TO CONSULT DR PIPER FOR LUNG MASS AND COPD. WILL CONTINUE TO MONITOR.
--- NOTE | 2019-02-08 21:34 | Progress Note ---
DATE: 02/08/2019 SUBJECTIVE: The patient could not get upper endoscopy today. She is otherwise eating okay. No further episode of melena reported. The patient also had spiked a temperature of 101 today. She also has had a CT of the chest done that showed some mass suggestive of primary malignancy in the right upper lung. REVIEW OF SYSTEMS: GENERAL: Weakness and lethargy. CVS: No chest pain or palpitation. RESPIRATORY: No cough or expectoration. MEDICATIONS: Reviewed as per SEP. Xarelto is on hold. PHYSICAL EXAMINATION: VITAL SIGNS: Temperature 99, pulse ranging from 99 to 108, respirations 18, blood pressure 112/53, oxygen saturation 94% on 2 L of nasal cannula. GENERAL: An elderly frail female. Not in any acute distress. Oral mucosa is moist. Anicteric sclerae. ABDOMEN: Soft, nondistended, nontender. No palpable or digitally appreciable mass. Slight mild left lower quadrant tenderness. No rebound, rigidity, or guarding. Positive bowel sounds. LABORATORY DATA: Stool occult blood is heme-positive. WBC is 19.64, hemoglobin 9.5, hematocrit 30.4, MCV 91.3, platelet count of 541. Sodium 139, potassium 3.5, chloride 86, bicarb 38. BUN 29, creatinine 1.36. IMPRESSION: 1. Melena reported, hemoglobin remains stable. No further melena. 2. Intraabdominal mass. 3. Right lung mass, highly suspicious for primary malignancy. 4. Leukocytosis and low-grade fever. ID following. PLAN: Continue present oral diet. We will attempt upper endoscopy tomorrow. The patient is now willing to have a biopsy of the abdominal mass. This can be performed either CT or ultrasound-guided. Given new primary malignancy in the right lung, the patient's whole clinical condition is now very complex. The goal of care needs to be determined, given her advanced age. Dwain Peterson MD SA/SORAYA /[id number] ZULEYKA
[2019-02-09] VITALS (8 sets, daily range): BP systolic 93–114; BP diastolic 49–56
[2019-02-09] MEDS: ALBUTEROL/IPRATROPIUM 3 ML NEB NEB SCH ×6 (00:11→20:31)
[2019-02-09] MEDS: METRONIDAZOLE 500MG/NS 100ML 100 ML IV SCH ×3 (05:11→21:25)
[2019-02-09] MEDS: LEVOTHYROXINE SODIUM 25 MCG TABLET PO SCH (05:11)
[2019-02-09 05:50] LABS: HEMATOCRIT 28.5 % (34.2-44.1); MEAN CORPUSCULAR HEMOGLOBIN 28.8 pg (28-32); MEAN CORPUSCULAR HGB CONC 31.6 g/dL (31-35); MEAN CORPUSCULAR VOLUME 91.3 fL (81-99); PLATELET COUNT 496 x10e3/uL (140-360); RED BLOOD COUNT 3.12 x10e6/uL (3.6-5.1); RED CELL DISTRIBUTION WIDTH 14.8 % (11.7-14.4)
[2019-02-09 06:08] LABS: INR 1.13; PROTHROMBIN TIME 15.1 seconds (11.9-14.5)
[2019-02-09 06:09] LABS: PARTIAL THROMBOPLASTIN TIME 43.1 seconds (23.8-35.5)
[2019-02-09 06:22] LABS: ANION GAP 13.6 mmol/L (8-16); CALCIUM 9.4 mg/dL (8.4-10.2); CREATININE, SERUM 1.21 mg/dL (0.57-1.11); POTASSIUM 3.6 mmol/L (3.5-5.1)
[2019-02-09] MEDS: MECLIZINE HCL 12.5 MG TAB PO SCH ×2 (07:00→18:10)
--- NOTE | 2019-02-09 07:00 | NUR ---
received am report from nurse, morning rounds done. pt is alert lying in bed, no s/s of distress. daughter is at the bedside. call light within reach
[2019-02-09] MEDS: FUROSEMIDE INJ 10 MG/ML 4 ML VIAL IV SCH ×2 (09:00→21:25)
[2019-02-09] MEDS: METOPROLOL SUCCINATE 25 MG TAB XL PO SCH ×2 (09:00→17:31)
[2019-02-09] MEDS: GABAPENTIN 100 MG CAP PO SCH ×2 (09:00→17:31)
[2019-02-09] MEDS ORDERED: GADOBENATE DIMEGLUMINE 1 ML IV ONE (09:15)
[2019-02-09 10:11] LABS: EOSINOPHILS % (MANUAL) 1 % (0-7); HYPOCHROMASIA SLIGHT; LYMPHOCYTES % (MANUAL) 2 % (19-48); METAMYELOCYTES % (MANUAL) 1 % (0-0); MONOCYTES % (MANUAL) 4 % (3.4-9.0); NEUTROPHILS % (MANUAL) 91 % (40-74); PROMYELOCYTES % (MANUAL) 1 % (0-0)
[2019-02-09 10:12] LABS: PLATELET ESTIMATE ADEQUATE; PLATELET MORPHOLOGY COMMENT NORMAL
[2019-02-09] MEDS: CEFEPIME 1GM/NS 0.9% 50 ML 50 ML IV SCH ×2 (10:34→18:10)
[2019-02-09] MEDS: FAMOTIDINE 20 MG/2 ML VIAL IV SCH ×2 (10:34→17:31)
--- NOTE | 2019-02-09 11:00 | NUR ---
pt was taken to OR via hospital bed by transporter. pt left in stable condition. report was given to OR prior to pt leaving unit
[2019-02-09] MEDS ORDERED: MIDAZOLAM HCL 2 MG/2 ML VIAL ONE (11:03)
[2019-02-09] MEDS ORDERED: FENTANYL CITRATE/PF 100MCG/2 ML INJ ONE (11:04)
--- NOTE | 2019-02-09 11:06 | Progress Note ---
DATE: 02/09/2019 SUBJECTIVE: Ms. Chavez is an 83-year-old female with history of COPD, former smoker, hypertension, chronic diastolic CHF, chronic atrial fibrillation, hypothyroidism, lower extremity lymphedema, came to the emergency room complaining of two weeks of being very weak. She has some cough and fever, since she did not improve she decided to come to the emergency room. A CT of the abdomen and pelvis showed cholelithiasis, constipation and a mass concerning for malignancy. PHYSICAL EXAMINATION: GENERAL: Today, she is awake. She feels very weak. VITAL SIGNS: Temperature is 99.6, blood pressure 101/55. HEART: Irregularly irregular. LUNGS: Poor inspiratory effort. ABDOMEN: Distended and soft with mild suprapubic and right lower quadrant tenderness. LABORATORY DATA: On the blood work; white count today is 21.77, hemoglobin is 9, hematocrit is 28.5. Potassium 3.6, creatinine is 1.21, glucose is 127. Blood cultures and urine cultures were negative. The patient went for a chest CT yesterday and chest CT showed right upper lobe mass with nodules in the right upper and right middle lobes, along with right hilar mediastinal lymphadenopathy. Findings are highly concerning for pulmonary malignancy with metastases. ASSESSMENT: On this patient: 1. Anemia that is multifactorial and apparently more related to her malignancy. 2. Positive stool for occult blood. 3. Chronic obstructive pulmonary disease exacerbation. 4. Pulmonary mass with lymph nodes concerning to malignancy, lung cancer with metastases. 5. Acute on chronic diastolic congestive heart failure. 6. Abdominal mass, rule out malignancy. 7. Chronic atrial fibrillation. 8. Chronic constipation. 9. Urinary retention. 10. Chronic kidney disease stage 3. 11. Hypothyroidism. 12. Chronic lower extremity lymphedema. 13. Leukocytosis probably secondary to malignancy. PLAN: At present time is anticoagulation was put on hold. EGD was canceled since GI thinks this is more related to malignancy than to GI bleed. She is on IV antibiotics. She is going to go for a CT-guided biopsy of the mass today. We are going to continue to monitor the patient. All this was discussed with the patient and family members at bedside. All questions were answered to satisfaction. The prognosis is poor due to the chest CT findings. Oncologists involved in the case. Mary Jane E Boccardo, MD NORMAN/SORAYA /[id number]
[2019-02-09] MEDS ORDERED: LIDOCAINE HCL 1% LOCAL INJ 20 ML VIAL ONE (11:17)
[2019-02-09] MEDS ORDERED: SODIUM CHLORIDE 0.9% 50ML 0 ML ONE (11:17)
--- NOTE | 2019-02-09 13:46 | Diagnostic Imaging Report ---
ADDENDUM #1 Dose modulation, iterative reconstruction, and/or weight based adjustment of the mA/kV was utilized to reduce the radiation dose to as low as reasonably achievable. Signed by: Za Tatum MD on 04/11/2019 4:39 PM ORIGINAL REPORT PROCEDURE: CT-guided lung mass biopsy Procedural Personnel Attending physician(s): Za Tatum MD Fellow physician(s): None Resident physician(s): None Advanced practice provider(s): None Pre-procedure diagnosis: Right upper lobe lung mass Post-procedure diagnosis: Same Indication: Histopathologic diagnosis Previous biopsy of same target (QCDR): No Additional clinical history: None Complications: No immediate complications. IMPRESSION: CT-guided biopsy of right upper lobe lung mass. Plan: Specimen(s) sent for evaluation. Recovery x 2 hours then back to floor. Portable chest radiograph at 1 hour then at 3 hours. PROCEDURE SUMMARY: - Percutaneous CT-guided right upper lobe lung mass biopsy - Additional procedure(s): None PROCEDURE DETAILS: Pre-procedure Reference imaging for biopsy target: CT chest of 02/07/2019 Consent: Informed consent for the procedure including risks, benefits and alternatives was obtained and time-out was performed prior to the procedure. Preparation: The site was prepared and draped using maximal sterile barrier technique including cutaneous antisepsis. Anesthesia/sedation Level of anesthesia/sedation: Moderate sedation (conscious sedation) Anesthesia/sedation administered by: Independent trained observer under attending supervision with continuous monitoring of the patient?s level of consciousness and physiologic status Total intra-service sedation time (minutes): 45 Imaging prior to biopsy The patient was positioned prone. Initial imaging was performed using noncontrast CT. Biopsy target: - Maximal diameter (cm): 3 - Location: Right upper lobe, posterior Other findings: None Biopsy Local anesthesia was administered. Under CT guidance, the biopsy needle was advanced to the target and biopsy was performed. Coaxial needle: 19 gauge 10 cm introducer. Core needle biopsy device: [employer] 15 cm 20-gauge with 2 cm throw . Core needle size: 20 gauge Number of core specimens: 4 (3 for pathology, 1 for micro) Fine needle aspiration device: 22g [place] Fine needle size: 22g Number of FNA specimens: 1 On-site biopsy touch preparation: Yes Additional sampling recommendations: None Preliminary assessment of sample adequacy: Adequate Needle removal The biopsy needle was removed and a sterile dressing was applied. Tract embolization: None Imaging following biopsy Immediate post-biopsy imaging was performed using noncontrast CT. Post-biopsy imaging findings: No pneumothorax Contrast Contrast agent: None Radiation Dose CT dose length product (mGy-cm): 1228.3 Additional Details Additional description of procedure: None Equipment details: None Specimens removed: Biopsy samples as detailed above Estimated blood loss (mL): Less than 10 Standardized report: [id number] Attestation Signer name: Za Tatum MD I attest that I was present for the entire procedure. I reviewed the stored images and agree with the report as written. Signed by: Za Tatum MD on 02/09/2019 1:43 PM
--- NOTE | 2019-02-09 14:40 | NUR ---
received report from PACU nurse, pt has been in recovery for 2 hours, and is stable. MRI of the brain was done in recovery. first post op xray was done in pacu and is normal. second post op xray scheduled for 1600. vital signs 117/74 hr 97 o2 sat 93% on 4L o2
--- NOTE | 2019-02-09 14:41 | Diagnostic Imaging Report ---
EXAMINATION: CHEST XRAY POST PROCEDURE INDICATION: Status post lung biopsy, assess for pneumothorax. COMPARISON: Chest CT of 02/07/2019 FINDINGS: TUBES and LINES: EKG leads overlie the chest. LUNGS: The lungs are moderately inflated. Unchanged right apical opacity corresponding with right upper lobe mass. Mild bibasilar subsegmental atelectasis. PLEURA: Possible tiny pneumothorax at the right apex versus skinfold measuring up to 4 mm. HEART AND MEDIASTINUM: Cardiomediastinal silhouette is stably enlarged. BONES AND SOFT TISSUES: No acute fracture or dislocation. UPPER ABDOMEN: No free air under the diaphragm. IMPRESSION: Possible tiny right apical pneumothorax versus skinfold measuring up to 4 mm. Attention is recommended on the 3 are follow-up radiograph to assess for possible expansion. Unchanged right apical mass. Signed by: Za Tatum MD on 02/09/2019 2:38 PM
[2019-02-09] MEDS: ACETAMINOPHEN 325 MG TAB PO PRN (15:00)
--- NOTE | 2019-02-09 15:04 | Progress Note ---
DATE: 02/09/2019 Cardiology Progress Note SUBJECTIVE: No chest pain or shortness of breath. Status post CT-guided biopsy by IR. OBJECTIVE: VITAL SIGNS: Temperature of 99.6, heart rate 100, blood pressure 101/55, and respiratory rate 18, O2 saturation 89% on nasal cannula. GENERAL: In no acute distress. Alert. NECK: No JVD. CHEST: Clear to auscultation. CARDIOVASCULAR: Irregular rate and rhythm. Normal S1 and S2, no S3, no S4. Systolic ejection murmur 07/25. ABDOMEN: Soft and nontender. EXTREMITIES: 1+ edema with chronic lymphedema changes. CARDIOVASCULAR MEDICATIONS: Reviewed, on: 1. Iron sucrose. 2. Furosemide 40 mg every 12 hours. 3. Metoprolol succinate 25 mg every 12 hours. 4. Furosemide 40 mg p.r.n. posttransfusion. 5. Metronidazole and cefepime antibiotics. 6. Albuterol and ipratropium inhaler therapy. LABORATORY DATA: Studies reviewed. Sodium 137, potassium 3.6, and creatinine 1.2. Hemoglobin 9, white blood cells 21.7, and platelets 496. INR 1.1. Discussion with nursing staff, consistency of to be mesfin pus and concern for malignancy is being further evaluated by pathology. Awaiting report. ASSESSMENT AND PLAN: An 83-year-old woman with chronic obstructive pulmonary disease, chronic diastolic heart failure and chronic atrial fibrillation, presents with anemia in the setting of suspected gastrointestinal bleed, now off anticoagulation, status post PRBC transfusion and biopsy for subdiaphragmatic mass. RECOMMEND: 1. Continue PACU monitoring post procedure. 2. Continue diuretics and rate control strategy. 3. Blood pressure is well controlled. Continue antihypertensives. 4. Continue to hold off anticoagulation given recent procedure and GI bleed. Further evaluation by GI is advised and the patient is in agreement to proceeding with this. Overall, guarded prognosis. Arnaldo Scruggs MD AFV/MODL /[id number]
--- NOTE | 2019-02-09 15:23 | Diagnostic Imaging Report ---
MRI BRAIN WOW HISTORY: Confused, history of lung mass COMPARISON: None. TECHNIQUE: Multiplanar, multisequence MRI of the brain (including diffusion-weighted imaging) was performed before and after the administration of intravenous, gadolinium based contrast. Motion artifacts obscure some details. DISCUSSION: Scalp/bone marrow: Unremarkable. Brain sulci: Appropriate for patient's age. Ventricles: Moderate supratentorial ventriculomegaly is slightly out of proportion to sulcal prominence. Extra-axial spaces: No masses or fluid collections. Parenchyma: Confluent T2/FLAIR hyperintense foci throughout the supratentorial white matter and tricia are likely chronic microvascular ischemic changes. Focal encephalomalacia along the left lateral perirolandic region is compatible with remote infarct. Otherwise, no mass, hemorrhage, or acute vascular insults. No definite abnormal parenchymal, leptomeningeal, or dural enhancement is seen. Vessels: Normal flow voids in major arteries and veins. Sellar/Suprasellar region: No abnormalities. Craniocervical junction: No abnormalities. Incidental findings: None. IMPRESSION: Limited exam due to motion artifacts. In spite of limitations: 1. Moderate supratentorial ventriculomegaly is slightly out of proportion to sulcal prominence. Correlate for communicating hydrocephalus. 2. Otherwise, no acute intracranial abnormalities. No gross evidence for intracranial metastatic disease. 3. Moderate supratentorial/pontine chronic microvascular ischemic change. 4. Focal encephalomalacia along the left lateral perirolandic region is compatible with a remote infarct. Signed by: Dr. Andre Henry M.D. on 02/09/2019 3:20 PM
--- NOTE | 2019-02-09 16:22 | NUR ---
CM SPOKE TO PATIENT AT BEDSIDE REGARDING IMM LETTER. IMM LETTER GIVEN WITH EXPLANATION BASED ON ANTICIPATED DISCHARGE DATE. ORIGINAL SIGNED AND PLACED IN CHART; COPY OF ORIGINAL DOCUMENT GIVEN TO PATIENT AT BEDSIDE AND PLACED IN CARE TRANSITION FOLDER. CM CONTACT INFORMATION GIVEN TO PATIENT FOR ANY NEEDS OR CONCERNS. PATIENT WITH NO FURTHER QUESTIONS.
--- NOTE | 2019-02-09 16:24 | Progress Note ---
DATE: SUBJECTIVE: Ms. Chavez is doing well, lying in bed comfortably. REVIEW OF SYSTEMS: HEENT: Negative. PULMONARY: Negative. She is still weak. She underwent a biopsy today. I had a long discussion with the family today and the patient. PHYSICAL EXAMINATION: GENERAL: She is currently alert, oriented, does not LABORATORY DATA: We reviewed with them all the laboratory data. Her lab data is still pending. Her white count remains elevated. IMPRESSION: I think the patient has malignancy, probably source is pulmonary with metastases. Family, we had a long discussion about hospice. We will consult hospice. Further recommendations to follow. Discussed with Case Management. Discussed with Internal Medicine. We will follow with you. MD SHERINE Cole/SORAYA /[id number]
--- NOTE | 2019-02-09 16:54 | NUR ---
SPOKE WITH FAMILY ABOUT HOSPICE ORDER, OFFERED CHOICE OF [facility], AND [facility]. FAMILY SIGNED CHOICE AND WANT TO MEET FOR AN EDUCATIONAL MEETING WITH ADELAIDA WITH [facility], FILED IN CHART. STATE WOULD LIKE TO SPEAK WITH DR CARROLL TO ASK QUESTIONS ABOUT PT PROGNOSIS AND LEVEL OF CARE NEEDS.
--- NOTE | 2019-02-09 16:58 | Diagnostic Imaging Report ---
EXAMINATION: CHEST SINGLE (PORTABLE) INDICATION: Status post lung biopsy, assess for pneumothorax. COMPARISON: Chest radiograph of earlier the same day. FINDINGS: TUBES and LINES: EKG leads overlie the chest. LUNGS: The lungs are moderately inflated. Unchanged right apical mass. Patchy opacities at the right and left lung bases. PLEURA: No pleural effusion or pneumothorax. HEART AND MEDIASTINUM: Cardiomediastinal silhouette is stably enlarged. Atherosclerotic calcifications of the thoracic aorta. BONES AND SOFT TISSUES: No acute fracture or dislocation. UPPER ABDOMEN: No free air under the diaphragm. IMPRESSION: No pneumothorax. Otherwise no significant interval change. Signed by: Za Tatum MD on 02/09/2019 4:54 PM
--- NOTE | 2019-02-09 19:00 | NUR ---
BS rounds completed with morning nurse. Pt alert to name. Lying in bed HOB 60 degrees. No s/s pain at this time. Call justice within reach. Family at bedside. Bed low and locked. Will continue to monitor.
--- NOTE | 2019-02-09 20:29 | Progress Note ---
DATE: 02/09/2019 GI Progress Report SUBJECTIVE: The family as well as patient has decided for home hospice. She has had a lung mass biopsy done today. The patient is eating okay. She has had a very small bowel movement. No reported melena. REVIEW OF SYSTEMS: GENERAL: Profound weakness and lethargy. CVS: No chest pain or palpitation. RESPIRATORY: No cough or expectoration. MEDICATIONS: Reviewed as per MAR. She is on intravenous cefepime as well as metronidazole along with other medications. PHYSICAL EXAMINATION: VITAL SIGNS: Temperature 99.7 to 100.8, pulse 91, respirations 16, blood pressure 114/56, oxygen saturation 87% on 2 L of nasal cannula. GENERAL: Awake, alert and coherent. However, she is quite lethargic and weak. HEENT: Oral mucosa is moist. Anicteric sclerae. ABDOMEN: Soft, mild left lower quadrant tenderness. No digitally palpable mass. No hernia. Mild left lower quadrant tenderness. No rebound, rigidity, or guarding. Bowel sounds present. LABORATORY DATA: Hemoglobin dropped down to 9.0 from 9.5. WBC has climbed up to 21.77 from 19.64, hematocrit 28.5, and platelet count 496. Sodium 137, potassium 3.6, chloride 88, bicarb 39, BUN 26, creatinine 1.21, and glucose 127. CT-guided biopsy of the right lung mass. IMPRESSION: 1. Melena reported, but not witnessed. The patient is no longer having any melena anymore. Hemoglobin relatively stable. 2. Intraabdominal mass. 3. Right lung mass, highly suspicious for primary malignancy, this was biopsied today. 4. Sepsis, leukocytosis, and low-grade fever. On intro on intravenous antibiotic. ID following. PLAN: Continue present medical management. The patient is likely having advanced malignancy. No reported gross GI bleeding. Will sign off from GI standpoint. Rest of the care as per primary team. Dwain Peterson MD SA/SORAYA /[id number]
[2019-02-09] MEDS: IRON SUCROSE 200 MG in SODIUM CHLORIDE 0.9% 100 ML 100 ML IV SCH (21:00)
--- NOTE | 2019-02-09 21:44 | Consultation ---
DATE OF CONSULTATION: Pulmonary Consultation REASON FOR THE CONSULT: Lung mass. HISTORY OF PRESENT ILLNESS: Ms. Chavez is an 83-year-old female. She is a patient of Dr. Owens, who was admitted by Dr. Kory Lincoln on 02/05/2019 with shortness of breath, fever, and chills, diagnosed with COPD exacerbation. Underwent a CT of the chest without contrast and it showed right upper lobe mass 3.5 x 3.3 x 2.8 cm. The patient underwent a lung mass biopsy. Dr. Sahu from Oncology has been consulted. Biopsy results are still pending. The patient denies any complaints of chest pain, nausea, or vomiting. REVIEW OF SYSTEMS: GENERAL: Denies any fever or chills. HEAD: Denies any head trauma. ENT: Denies any earache. CVS: Denies any chest pain. RESPIRATORY: Denies any shortness of breath. The rest of the review of systems is negative except as in HPI. PAST MEDICAL HISTORY: COPD and hypertension. The patient is on Xarelto for atrial fibrillation and chronic diastolic heart failure. She has quit smoking in 2018, smoked for many years. FAMILY AND SOCIAL HISTORY: She is a . She lives with daughter. She smoked for many years, quit in 2018. PHYSICAL EXAMINATION: VITAL SIGNS: Temperature 100.8, pulse of 91, blood pressure 114/56, and O2 saturation 87%. T-max of 101.0. HEENT: Head is atraumatic, normocephalic. NECK: Supple. CHEST: Clear to auscultation bilaterally. No wheezing. No crackles. HEART: S1, S2 audible. ABDOMEN: Soft. EXTREMITIES: No pedal edema. NEUROLOGIC: Awake and alert. LABORATORY DATA: White count 21,[address] of the chest shows upper lobe lung mass and CT of the abdomen and pelvis is showing a circumscribed intraabdominal mass. ASSESSMENT: Ms. Chavez is an 83-year-old female who presented to the emergency room with shortness of breath. The patient has chronic obstructive pulmonary disease. CT of the chest is showing right upper lobe lung mass, status post needle biopsy. PLAN: 1. Continue the patient on antibiotic treatment as per ID recommendation. 2. The patient is already on nebulizer treatment. CT-guided biopsy has been done, awaiting results. We will follow the results. Ferreira MD KEVIN Ambriz/SORAYA /[id number]
[2019-02-10] VITALS (7 sets, daily range): BP systolic 92–146; BP diastolic 51–67
[2019-02-10] MEDS: ALBUTEROL/IPRATROPIUM 3 ML NEB NEB SCH ×6 (03:00→23:43)
[2019-02-10] MEDS ORDERED: SODIUM CHLORIDE 0.9% 250ML 250 ML ONE (05:48)
[2019-02-10] MEDS: LEVOTHYROXINE SODIUM 25 MCG TABLET PO SCH (06:00)
[2019-02-10] MEDS: METRONIDAZOLE 500MG/NS 100ML 100 ML IV SCH ×3 (06:00→22:00)
--- NOTE | 2019-02-10 06:50 | NUR ---
Report given to morning nurse. Pt alert to name. Denies pain at this time. Family at bedside. No acute distress noted. Call justice within reach.
--- NOTE | 2019-02-10 07:00 | NUR ---
received am report from nurse, morning rounds done. pt is sleeping, aroused by voice, no s/s of distress. call light within reach and son is at the bedside
[2019-02-10] MEDS: GABAPENTIN 100 MG CAP PO SCH ×2 (09:42→18:18)
[2019-02-10] MEDS: FUROSEMIDE INJ 10 MG/ML 4 ML VIAL IV SCH ×2 (09:42→20:37)
[2019-02-10] MEDS: METOPROLOL SUCCINATE 25 MG TAB XL PO SCH ×2 (09:42→18:19)
[2019-02-10] MEDS: FAMOTIDINE 20 MG/2 ML VIAL IV SCH ×2 (09:42→18:18)
[2019-02-10] MEDS: MECLIZINE HCL 12.5 MG TAB PO SCH ×2 (09:42→19:00)
[2019-02-10] MEDS: CEFEPIME 1GM/NS 0.9% 50 ML 50 ML IV SCH ×2 (09:42→20:36)
--- NOTE | 2019-02-10 10:57 | Progress Note ---
DATE: 02/10/2019 SUBJECTIVE: Ms. Chavez is an 83-year-old female with history of COPD. She is a former smoker, hypertension, chronic diastolic CHF, chronic atrial fibrillation, lower extremity lymph edema, hypothyroid disease, came to the emergency room because she was feeling weak. She was having some cough and fever. CT scan of the abdomen and pelvis show a mass concerning for malignancy. Chest CT showing a right upper lobe mass. Also, she went for a CT-guided biopsy yesterday of the lung mass. PHYSICAL EXAMINATION: GENERAL: Today, as per family, she is sleepy. VITAL SIGNS: Temperature is 100.3, blood pressure 108/51. HEART: Irregularly irregular. LUNGS: Poor inspiratory effort. ABDOMEN: Soft. LABORATORY DATA: On the blood work white count is 21.77, hemoglobin 7.0, hematocrit 28.5, potassium 3.6, creatinine is 1.21. Carcinoembryonic antigen came back 6.2, that is elevated. Cultures are pending. Lung biopsy is still also pending. ASSESSMENT: 1. Anemia that is multifactorial. 2. Chronic obstructive pulmonary disease exacerbation. 3. Positive stool guaiac. 4. Pulmonary mass with lymph node concerning for malignancy. 5. Acute on chronic diastolic congestive heart failure. 6. Abdominal mass. 7. Chronic atrial fibrillation. 8. Chronic constipation. 9. Urinary retention. 10. Chronic kidney disease stage 3. 11. Hypothyroidism. 12. Chronic lower extremity lymphedema. 13. Leukocytosis. PLAN: At present time is to continue empiric IV antibiotics. EGD was concealed. She had a CT-guided biopsy of the lung mass yesterday. We are awaiting the results. The patient looks very debilitated and we are awaiting for the final diagnoses. There family has an appointment with hospice tomorrow. Dr. Rodriguez, Oncology is following patient with us. The overall prognosis of the patient is poor. All this was discussed with the patient and family at bedside. All questions were answered to satisfaction. MD NORMAN Barfield/SORAYA /[id number]
--- NOTE | 2019-02-10 13:49 | NUR ---
SPOKE WITH HOSPICE FAMILY HAS PUSHED MEETING TO TOMORROW WITH HOSPICE. LET FAMILY KNOW THAT THEY HAVE TO HAVE MEETING AND DECISION TOMORROW.
[2019-02-10] MEDS: ACETAMINOPHEN 325 MG TAB PO PRN (16:22)
[2019-02-10] MEDS: ACETAMINOPHEN 650 MG SUPP PR PRN ×2 (17:27→18:19)
[2019-02-10] MEDS: IRON SUCROSE 200 MG in SODIUM CHLORIDE 0.9% 100 ML 100 ML IV SCH (21:00)
[2019-02-11] VITALS (7 sets, daily range): BP systolic 99–115; BP diastolic 53–59
--- NOTE | 2019-02-11 00:06 | Progress Note ---
DATE: 02/10/2019 Cardiology Progress Note SUBJECTIVE: No complaints today other than low-grade fever and tiredness. Denies chest pain. OBJECTIVE: VITAL SIGNS: Temperature 98.2, heart rate 100, blood pressure 146/65, respiratory rate 18, and O2 saturation 96%. GENERAL: In no acute distress. Alert. NECK: No JVD. CHEST: Scattered rhonchi. CARDIOVASCULAR: Irregularly irregular rate and rhythm. Normal S1, S2. ABDOMEN: Soft and nontender. EXTREMITIES: Trace edema. Chronic lymphedema changes. CARDIOVASCULAR MEDICATIONS: Reviewed. Furosemide 40 mg every 12 hours, metoprolol succinate 25 mg every 12 hours, metronidazole, and cefepime. LABORATORY DATA: Studies reviewed. Creatinine 1.2. White blood cells 21, hemoglobin 9, and platelets 496. INR 1.1. AST 17, ALT 20, and alkaline phosphatase 111. ASSESSMENT: An 83-year-old woman presents with subdiaphragmatic mass, status post biopsy, pending confirmation etiology and suspected cancer. GI bleed. Atrial fibrillation. Hypertension. Chronic obstructive pulmonary disease. Chronic lymphedema. RECOMMENDATIONS: 1. Continue current cardiovascular medications. 2. Not currently a candidate for resuming anticoagulation. 3. Antibiotics per primary service. 4. Await biopsy results. Overall, guarded prognosis. MD DERRICK Hurt/LAYOL /[id number]
[2019-02-11] MEDS: ALBUTEROL/IPRATROPIUM 3 ML NEB NEB SCH ×6 (03:00→22:55)
[2019-02-11] MEDS: LEVOTHYROXINE SODIUM 25 MCG TABLET PO SCH (06:00)
[2019-02-11] MEDS: METRONIDAZOLE 500MG/NS 100ML 100 ML IV SCH ×3 (06:00→23:00)
--- NOTE | 2019-02-11 07:24 | NUR ---
Hand off report received at pt's bedside from RAMONE Vivas. Pt is AAOx2, in no acute distress noted, resp even and unlabored. Pt and daugther educated on safety, instructed to use the call light for assistance, bed is in lowest position, locked, SR upx2 and all personal items are within reach. Will continue to monitor.
[2019-02-11] MEDS: CEFEPIME 1GM/NS 0.9% 50 ML 50 ML IV SCH ×2 (09:38→21:19)
[2019-02-11] MEDS: GABAPENTIN 100 MG CAP PO SCH ×2 (09:39→17:40)
[2019-02-11] MEDS: FAMOTIDINE 20 MG/2 ML VIAL IV SCH ×2 (09:39→17:40)
[2019-02-11] MEDS: MECLIZINE HCL 12.5 MG TAB PO SCH ×2 (09:39→19:00)
[2019-02-11] MEDS: FUROSEMIDE INJ 10 MG/ML 4 ML VIAL IV SCH ×2 (09:39→21:19)
[2019-02-11] MEDS: METOPROLOL SUCCINATE 25 MG TAB XL PO SCH ×2 (09:40→17:40)
--- NOTE | 2019-02-11 10:42 | Progress Note ---
DATE: 02/11/2019 SUBJECTIVE: Ms. Chavez is an 83-year-old female with history of COPD, hypertension, chronic diastolic CHF, chronic atrial fibrillation, lower extremity lymphedema, former smoker, came to the emergency room complaining of fever, weakness and cough. A CT of the abdomen and pelvis show a mass concerning for malignancy. Chest CT show upper lobe mass with some lymph nodes. She underwent a CT-guided biopsy of the lung mass and we are awaiting for the results. PHYSICAL EXAMINATION: GENERAL: Today, the patient looks pale and weak. VITAL SIGNS: Temperature is 96.5, blood pressure is 99/56. HEART: Irregularly irregular. LUNGS: Poor inspiratory effort. ABDOMEN: Soft. LABORATORY DATA: On the blood work; white count is 21.77, hemoglobin is 9, hematocrit is 28.5. Potassium 3.6, creatinine 1.21. Cultures so far negative. Biopsies not ready. Brain MRI was negative for any masses. ASSESSMENT: 1. Anemia, multifactorial. 2. Chronic obstructive pulmonary disease exacerbation. 3. A pulmonary mass with lymph nodes concerning for malignancy. 4. Positive stool guaiac. 5. Acute on chronic diastolic congestive heart failure. 6. Abdominal mass. 7. Chronic atrial fibrillation. 8. Chronic constipation. 9. Urinary retention. 10. Chronic kidney disease stage 3. 11. Hypothyroidism. 12. Chronic lower extremity lymphedema. 13. Leukocytosis. PLAN: At present time is to continue empirical IV antibiotics. EGD was canceled. Awaiting for the CT-guided biopsy of the lung mass. Continue other home medications. Dr. Rodriguez, Oncology is following the patient with us and all this was discussed with the patient and family members at bedside. All questions were answered to satisfaction. MD NORMAN Barfield/LAYOL /[id number]
--- NOTE | 2019-02-11 12:08 | Progress Note ---
DATE: 02/11/2019 Cardiology Progress Note SUBJECTIVE: No complaints. OBJECTIVE: VITAL SIGNS: Temperature 96.5, heart rate 80, respiratory rate 18, blood pressure 199/56, and O2 saturation 95% on nasal cannula. GENERAL: In no acute distress, alert. NECK: No JVD. CHEST: With scattered rhonchi. CARDIOVASCULAR: Irregular rate and rhythm. Normal S1, S2. ABDOMEN: Soft. EXTREMITIES: Trace edema. Chronic lymphedema changes. CARDIOVASCULAR MEDICATIONS: Reviewed. Metoprolol succinate 25 mg b.i.d. Furosemide 40 mg IV every 12 hours. LABORATORY DATA: Studies reviewed. None for today. ASSESSMENT: An 83-year-old woman with, 1. Subdiaphragmatic mass, status post biopsy, pending confirmation of etiology with suspected cancer. 2. Gastrointestinal bleed and anemia. 3. Atrial fibrillation. 4. Hypertension. 5. Chronic obstructive pulmonary disease. 6. Chronic lymphedema. RECOMMENDATIONS: 1. Continue current cardiovascular medications. 2. Continue to hold off on anticoagulation given findings of above in particularly GI bleed and anemia. 3. Antibiotics per primary service. 4. Await biopsy results. 5. Guarded prognosis. MD DERRICK Hurt/SORAYA /[id number]
--- NOTE | 2019-02-11 13:02 | NUR ---
SPOKE WITH HOSPICE, THE FAMILY HAS TOLD THEM THEY STILL WANT TO ASK QUESTIONS TO THE DOCTOR ABOUT THE ABX, SOFIA WAS ABLE TO SPEAK WITH THE FAMILY AND EDUCATE ABOUT PLACEMENT WITH HOSPICE, PT IS OVER RESOURCES AND WILL HAVE TO PICK A PRIVATE PAY FACILITY AND [facility] WILL BE ABLE TO FACILITATE THE MOVE SOON A DECISION IS MADE.
--- NOTE | 2019-02-11 15:52 | NUR ---
CM SPOKE TO PATIENT AND PATIENT DAUGHTER CÉSAR AT BEDSIDE REGARDING IMM LETTER. IMM LETTER GIVEN WITH EXPLANATION BASED ON ANTICIPATED DISCHARGE DATE. ORIGINAL SIGNED BY PATIENT DAUGHTER REQUESTED BY PATIENT AND PLACED IN CHART; COPY OF ORIGINAL DOCUMENT GIVEN TO PATIENT AT BEDSIDE AND PLACED IN CARE TRANSITION FOLDER. CM CONTACT INFORMATION GIVEN TO PATIENT FOR ANY NEEDS OR CONCERNS. PATIENT WITH NO FURTHER QUESTIONS.
--- NOTE | 2019-02-11 16:49 | NUR ---
Nutrition Screen Note RD Recommendation for Physician: - Diet per MD Plan of Care: RD sign off, pt accepted to hospice and pending D/C Nutrition reason for involvement: LOS Primary Diagnose(s): COPD with acute exacerbation, leukocytosis PMH: HTN, COPD, CHF, hypothyroidism Ht: 72 in Wt: 205 lb BMI: 27.8 kg/m2 IBW: [address] Assessment: (02/11) 83 YOF admitted for COPD exacerbation found to have probable malignancy with mets per testing and pending biopsy. Per am rounds family has chosen to go with Hospice and pt is pending discharge. Providers at bedside at time of visit. Chart reviewed. Labs and meds reviewed. Current Diet: Cardiac Malnutrition Evaluation (02/11) The patient does not meet criteria for a specified degree of malnutrition at this time. Will re-evaluate at follow-up as appropriate. Unable to evaluate, providers at bedside Diet Education Needs Assessment: Diet education not indicated. Nutrition Care Level: Low, RD sign off / Hospice statue Signed: Kathi Coffey RD, LD, CNSC
--- NOTE | 2019-02-11 18:41 | Progress Note ---
DATE: SUBJECTIVE: Today I saw Ms. Chavez, while she has no complaint. I had a very long discussion with the family. Her daughter at the bedside. Also discussed at length with Case Management. REVIEW OF SYSTEMS: She is just weak in general. PHYSICAL EXAMINATION: GENERAL: She is currently alert, does not seem to be in acute distress. VITAL SIGNS: Stable, afebrile. HEENT: She is not icteric. NECK: Supple. CHEST: Few crackles. COR: S1 and S2. No S3, S4, or murmur. ABDOMEN: Soft. Bowel sounds present. No tenderness. EXTREMITIES: No edema. SKIN: No rash. LABORATORY DATA: Reviewed. Chart reviewed. IMPRESSION: 1. Lung mass with mets, very suspicious for malignancy and cancer. The patient has history of smoking before. Family weighing her options. They want her to be comfortable. The patient wants to be comfortable. They are thinking about hospice, but the question is where and if they can take her home, she is getting weaker versus to treat the postobstructive pneumonia. I had a long discussion with them, they will get back with me. 2. Postobstructive pneumonia. 3. Anemia due to GI bleed. 4. Diastolic congestive heart failure. 5. Chronic atrial fibrillation. 6. Chronic kidney disease. 7. I spent more than an hour talking with the family and the Case Management at the patient's bedside, discussing all the options including hospice at home or hospice and skilled care or to continue IV antibiotic and that means we have to move the patient to long-term facility. They will let me know. We will follow. Lab data reviewed with the patient. MD SHERINE Cole/SORAYA /[id number]
--- NOTE | 2019-02-11 18:50 | NUR ---
Hand off report given to David Lin at pt's bedside Pt is AAOx2, in no acute distress noted, resp even and unlabored. Pt and pti's daughter instructed to use the call light for assistance, bed is in lowest position, locked, SR upx2 and all personal items are within reach.
--- NOTE | 2019-02-11 19:05 | NUR ---
Patient visited in room during nursing rounds. Patient appear comfortable. Alert and oriented x1-2. Pt is DNR care status. On 5L NC. IV on LH saline locked. Pt on scheduled IV antibiotics and Iron (venofer). Enriquez in place for urinary retention. Pt diapered and is incontinent. Pt being turned in bed Q2hr. Daughter at bedside. Call justice within reach. Will monitor closely.
[2019-02-11] MEDS ORDERED: SODIUM CHLORIDE 0.9% 500ML 500 ML ONE (19:41)
--- NOTE | 2019-02-11 19:45 | NUR ---
Pt had soft dark brown to black bowel movement. Anal area cleaned with wipes and diaper changed.
[2019-02-11] MEDS: ACETAMINOPHEN 650 MG SUPP PR PRN (19:58)
--- NOTE | 2019-02-11 19:58 | NUR ---
Last temp taken was 102.6 F (oral). Pt appear incoherent and refuses to take PO Tylenol. Pt was then given Tylenol 650mg suppository with help from daughter at bedside. Will monitor temp closely.
--- NOTE | 2019-02-11 21:12 | NUR ---
Temp now is 100.1 F. Pt more coherent and able to follow commands or answer questions correctly.
[2019-02-11] MEDS: IRON SUCROSE 200 MG in SODIUM CHLORIDE 0.9% 100 ML 100 ML IV SCH (22:00)
--- NOTE | 2019-02-11 23:38 | NUR ---
Temp now 99.3 F.
[2019-02-12] VITALS (8 sets, daily range): BP systolic 99–115; BP diastolic 54–58
[2019-02-12] MEDS: ALBUTEROL/IPRATROPIUM 3 ML NEB NEB SCH ×4 (02:40→15:19)
[2019-02-12] MEDS: ACETAMINOPHEN 650 MG SUPP PR PRN ×2 (04:39→18:10)
[2019-02-12] MEDS: LEVOTHYROXINE SODIUM 25 MCG TABLET PO SCH (06:00)
[2019-02-12 06:30] LABS: ANION GAP 16.1 mmol/L (8-16); CALCIUM 9.8 mg/dL (8.4-10.2); CREATININE, SERUM 0.94 mg/dL (0.57-1.11); POTASSIUM 3.1 mmol/L (3.5-5.1)
[2019-02-12 06:32] LABS: BASOPHILS # (AUTO) 0.1 (0.0-0.1); BASOPHILS % 0.4 % (0.0-1.0); EOSINOPHILS # (AUTO) 0.8 (0.0-0.4); EOSINOPHILS % 3.1 % (0.0-6.0); HEMATOCRIT 30.9 % (34.2-44.1); HEMOGLOBIN 9.7 g/dL (12.0-16.0); LYMPHOCYTES # (AUTO) 1.2 (1.0-3.2); LYMPHOCYTES % 4.4 % (18.0-39.1); MEAN CORPUSCULAR HEMOGLOBIN 29.2 pg (28-32); MEAN CORPUSCULAR HGB CONC 31.4 g/dL (31-35); MEAN CORPUSCULAR VOLUME 93.1 fL (81-99); MONOCYTES # (AUTO) 1.8 (0.2-0.8); MONOCYTES % 6.7 % (4.4-11.3); NEUTROPHILS # (AUTO) 21.3 (2.1-6.9); NEUTROPHILS % 81.7 % (38.7-80.0); PLATELET COUNT 504 x10e3/uL (140-360); RED BLOOD COUNT 3.32 x10e6/uL (3.6-5.1); RED CELL DISTRIBUTION WIDTH 14.7 % (11.7-14.4)
[2019-02-12] MEDS: METRONIDAZOLE 500MG/NS 100ML 100 ML IV SCH ×3 (06:50→22:37)
[2019-02-12] MEDS: MECLIZINE HCL 12.5 MG TAB PO SCH ×2 (07:00→21:34)
--- NOTE | 2019-02-12 07:00 | NUR ---
Walking rounds and report received. Patient is awake and alertx4 in good spirits. Her daughter is at the bedside. POC discussed. Both patient and daughter instructed to call for assistance as needed and verbalized understanding. Call justice within reach.
[2019-02-12 08:15] LABS: ANISOCYTOSIS SLIGHT; LYMPHOCYTES % (MANUAL) 7 % (19-48); MONOCYTES % (MANUAL) 11 % (3.4-9.0); NEUTROPHILS % (MANUAL) 82 % (40-74); PLATELET ESTIMATE MODERATELY INCREASED; PLATELET MORPHOLOGY COMMENT NORMAL; RBC MORPHOLOGY COMMENT ABNORMAL
[2019-02-12] MEDS: FUROSEMIDE INJ 10 MG/ML 4 ML VIAL IV SCH ×2 (09:04→21:24)
[2019-02-12] MEDS: CEFEPIME 1GM/NS 0.9% 50 ML 50 ML IV SCH ×2 (09:04→21:24)
[2019-02-12] MEDS: GABAPENTIN 100 MG CAP PO SCH ×3 (09:04→16:33)
[2019-02-12] MEDS: FAMOTIDINE 20 MG/2 ML VIAL IV SCH ×2 (09:04→16:25)
[2019-02-12] MEDS: METOPROLOL SUCCINATE 25 MG TAB XL PO SCH ×2 (09:05→16:25)
[2019-02-12] MEDS ORDERED: POTASSIUM CHLORIDE 20 MEQ TAB CR PO STA (15:25)
[2019-02-12] MEDS ORDERED: POTASSIUM CHLORIDE 20MEQ/15ML UDC PO ONE (15:45)
--- NOTE | 2019-02-12 15:45 | NUR ---
CM SPOKE WITH PT'S DAUGHTER CÉSAR ROSS THIS AM OVER PHONE CÉSAR CALLED TO SAY THAT FAMILY HAS DECIDED TO TAKE PT HOME WITH [facility] EQU[facility]MENT BEING DELIVERED IN AM WITH [facility] ARCHITECT TIME AROUND NOON SPOKE WITH LEANNE CORRAL WITH [facility] TO CONFIRM ABOVE H+P FAXED TO [facility] AT [phone] REQUESTED CALL PLACED TO DR RAMOS (COVERING FOR CARLY) TO ASK FOR DC ORDERS NURSE RAINES UPDATED ON PLAN
--- NOTE | 2019-02-12 16:00 | NUR ---
Dr. Cruz rounds. He spoke to daughter at length, and the plan is for patient to be discharged tomorrow with Hospice. See CM's note.
--- NOTE | 2019-02-12 16:11 | Progress Note ---
DATE: Internal Medicine Progress Note SUBJECTIVE: The patient has poor appetite. PHYSICAL EXAMINATION: VITAL SIGNS: Blood pressure 115/58, temperature 97.8, heart rate 98 per minute, respiratory rate is 20 per minute, and oxygen saturation 96%. HEART: Showed irregularly irregular heart rate. Normal S1, S2 sound. LUNGS: Show decreased breath sounds bilaterally. ABDOMEN: Soft. LABORATORY DATA: On BMP; sodium 135, potassium 3.1, chloride 83, CO2 of 39, BUN 19, creatinine 0.94, glucose 103. On the CBC; white blood count 26,100, hemoglobin 9.7, hematocrit 30.9, platelet count 504,000. PT 15.1, INR 1.13, PTT 43.1. AST 17, ALT 20, total bilirubin 0.5, alkaline phosphatase 111. IMPRESSION: 1. Chronic obstructive pulmonary disease exacerbation. 2. Anemia of chronic disease. 3. Hypokalemia. 4. Chronic atrial fibrillation. 5. Lung cancer. 6. Leukocytosis. PLAN OF TREATMENT: Hospice has been consulted on the case. Prognosis is very poor. Continue albuterol and Atrovent q.4 hours, metronidazole 500 mg IV q.8 hours, cefepime 1 g IV twice a day, Pepcid 20 mg twice a day, gabapentin 100 mg twice a day, metoprolol 25 mg twice a day, albuterol 1 g q.6 hours, meclizine 25 mg q.12 hours, Zofran 4 mg IV q.6 hours, levothyroxine 25 mcg p.o. daily, furosemide 40 mg twice a day, Tylenol 650 mg q.4 hours as needed, Tylenol 650 mg q.6 hours as needed for pain or fever. Prognosis is very poor. I discussed the case with the family at the bedside. Hospice evaluation in progress. MD CARRI Hager/SORAYA /[id number]
--- NOTE | 2019-02-12 18:30 | Progress Note ---
DATE: 02/12/2019 Cardiology Progress Note SUBJECTIVE: Denies chest pain or shortness of breath. Less interactive today with suspected ongoing fever, pending confirmation. OBJECTIVE: VITAL SIGNS: Temperature 99.5, heart rate 85, respiratory rate 18, blood pressure 115/55, O2 saturation 99%, and BMI 27.8. GENERAL: In no acute distress, alert. NECK: No JVD. CHEST: Clear to auscultation. CARDIOVASCULAR: Irregularly irregular rate and rhythm. Normal S1 and S2. No S3 or S4. ABDOMEN: Soft and nontender. EXTREMITIES: Trace edema. Chronic lymphedema skin changes. CARDIOVASCULAR MEDICATIONS: Metoprolol succinate 25 mg b.i.d., furosemide 40 mg every 12 hours, metronidazole, and cefepime antibiotics. STUDIES: Reviewed. Sodium 135, potassium 3.1, chloride 83, bicarbonate 39, BUN 19, creatinine 0.94, and glucose 103. White blood cells 26.1, hemoglobin 9.7, and platelets 504. PT 15.1, INR 1.13, and PTT 43.1. AST 17, ALT 20, alkaline phosphatase 111, and total bilirubin 0.5. ASSESSMENT: 1. An 83-year-old woman presents with subdiaphragmatic abdominal mass, status post biopsy, pending confirmation of suspected cancer. 2. Chronic obstructive pulmonary disease exacerbation. 3. Chronic diastolic heart failure. 4. Chronic atrial fibrillation. 5. Anemia. 6. Gastrointestinal bleed. 7. DNR. RECOMMENDATIONS: 1. Continue current cardiovascular medications. 2. Continue to hold off on anticoagulation. 3. Await biopsy results. 4. The patient and family are considering transitioning once discharged to home hospice. 5. For now, recheck temperature and treat any evidence of fever or discomfort, maintaining focus on optimizing the patient's symptomatology. We will be available as needed. Arnaldo Scruggs MD [facility] /[id number]
--- NOTE | 2019-02-12 19:00 | NUR ---
Walking rounds and report give. Call justice within reach.
--- NOTE | 2019-02-12 19:21 | NUR ---
family politely refusing therapy today..f/u next week Addendum: 02/12/19 at 2 by Gregg Richardson PTA Amended: Links added.
--- NOTE | 2019-02-12 20:00 | NUR ---
Patient's receiving treatment, treatment was done and nurse disconnected the mask from patient and [place] was connected with 2l, patient family called,tech and called me to come and check it out, nurse went in there and oxygen was at 2l as earlier programmed, patient family member did not understand why the bulb in the oxygen vial is not all the way in the middle and when i tried to explained to him that the ball do not have to be all the way up there, he got angry, hse sup was made aware and assignment was changed, resp. tech was called to come speak to patient. patient was stable and in no any form of distress.
--- NOTE | 2019-02-12 20:46 | NUR ---
Dr. Rodriguez was called for temp of 102.1 and ordered to give iv tylenol at 10 pm due to recent rectal tylenol
--- NOTE | 2019-02-12 20:51 | NUR ---
Patient refused lab draw, Dr. Cruz officed called, waiting for call back
--- NOTE | 2019-02-12 20:53 | NUR ---
Dr. Cruz called back and was made aware of patient and family member refusing lab draw and stated to document. no new orders.
--- NOTE | 2019-02-12 21:27 | NUR ---
PATIENT DENIES PAIN, NO RESPIRATORY DISTRESS OBSERVED, OXYGEN AT 3L/NC. POPSICLE GIVEN TO THE PATIENT, FAMILY MEMBERS VISITING. REPOSITION IN BED FOR COMFORT, DISCOLORATIONS TO THE LEGS AND BRUISES TO THE ARMS.
--- NOTE | 2019-02-12 22:38 | NUR ---
COMPLETE BED BATH PROVIDED BY NURSE CIGARETTE INSPECTOR, PATIENT REPOSITION IN BED FOR COMFORT. TEMPERATURE RECHECKED WITH READING OF 99.4. SHE DENIES PAIN, FAMILY MEMBERS AT THE BEDSIDE.
[2019-02-12] MEDS ORDERED: ACETAMINOPHEN 1000 MG/100 ML IV ONE (23:30)
[2019-02-13 00:20] VITALS: BP 128/77
--- NOTE | 2019-02-13 02:11 | NUR ---
PATIENT SOUNDLY ASLEEP, NO RESPIRATORY DISTRESS OBSERVED. FAMILY MEMBERS IN THE ROOM WITH THE PATIENT.
[2019-02-13] MEDS: ALBUTEROL/IPRATROPIUM 3 ML NEB NEB SCH ×3 (03:10→11:09)
[2019-02-13 04:27] VITALS: BP 104/55
[2019-02-13] MEDS: LEVOTHYROXINE SODIUM 25 MCG TABLET PO SCH (06:31)
[2019-02-13] MEDS: METRONIDAZOLE 500MG/NS 100ML 100 ML IV SCH (06:32)
--- NOTE | 2019-02-13 07:10 | NUR ---
walking rounds done. Patient without any complaints voiced this morning. She appears comfortable. Daughter is at the bedside. POC discussed. Both were instructed to call for assistance as needed and verbalized understanding. Call justice within reach.
[2019-02-13 08:00] VITALS: BP 121/58
[2019-02-13] MEDS: MECLIZINE HCL 12.5 MG TAB PO SCH (08:44)
[2019-02-13] MEDS: FAMOTIDINE 20 MG/2 ML VIAL IV SCH (08:44)
[2019-02-13] MEDS: CEFEPIME 1GM/NS 0.9% 50 ML 50 ML IV SCH (08:44)
[2019-02-13] MEDS: FUROSEMIDE INJ 10 MG/ML 4 ML VIAL IV SCH (08:44)
[2019-02-13] MEDS: GABAPENTIN 100 MG CAP PO SCH (08:44)
[2019-02-13] MEDS: METOPROLOL SUCCINATE 25 MG TAB XL PO SCH (08:45)
[2019-02-13 08:46] LABS: BASOPHILS # (AUTO) 0.1 (0.0-0.1); BASOPHILS % 0.3 % (0.0-1.0); EOSINOPHILS # (AUTO) 0.1 (0.0-0.4); EOSINOPHILS % 0.2 % (0.0-6.0); HEMATOCRIT 32.2 % (34.2-44.1); HEMOGLOBIN 10.1 g/dL (12.0-16.0); LYMPHOCYTES # (AUTO) 1.6 (1.0-3.2); LYMPHOCYTES % 5.6 % (18.0-39.1); MEAN CORPUSCULAR HEMOGLOBIN 29.2 pg (28-32); MEAN CORPUSCULAR HGB CONC 31.4 g/dL (31-35); MEAN CORPUSCULAR VOLUME 93.1 fL (81-99); MONOCYTES # (AUTO) 1.5 (0.2-0.8); NEUTROPHILS # (AUTO) 24.9 (2.1-6.9); NEUTROPHILS % 85.4 % (38.7-80.0); PLATELET COUNT 460 x10e3/uL (140-360); RED BLOOD COUNT 3.46 x10e6/uL (3.6-5.1); RED CELL DISTRIBUTION WIDTH 15.1 % (11.7-14.4)
[2019-02-13] MEDS: ACETAMINOPHEN 325 MG TAB PO PRN ×2 (08:46→13:40)
[2019-02-13 09:03] LABS: ANION GAP 18.2 mmol/L (8-16); CALCIUM 10.4 mg/dL (8.4-10.2); CREATININE, SERUM 1.05 mg/dL (0.57-1.11); POTASSIUM 3.2 mmol/L (3.5-5.1)
[2019-02-13 09:16] LABS: LYMPHOCYTES % (MANUAL) 13 % (19-48); MONOCYTES % (MANUAL) 3 % (3.4-9.0); NEUTROPHILS % (MANUAL) 84 % (40-74); PLATELET ESTIMATE SLIGHTLY INCREASED; PLATELET MORPHOLOGY COMMENT NORMAL; RBC MORPHOLOGY COMMENT NORMAL
[2019-02-13 11:34] VITALS: BP 113/55
--- NOTE | 2019-02-13 12:00 | NUR ---
Hospice nurseJie called to let staff know, ambulance will be here at 1400 to transport patient home. Per Jie, medications will be handled by Hospice. Printed information on all the physicians who saw the patient will given per daughters request. IV dc'd, cath intact and small dressing applied.
[2019-02-13] MEDS ORDERED: duoneb INH (13:13)
--- NOTE | 2019-02-13 14:15 | NUR ---
Patient discharged via stretcher. written discharge provided to daughter, Kaitlin Pierce that is at bedside. She gathered all belongings.
--- NOTE | 2019-02-13 20:16 | Discharge Summary ---
HOSPITAL COURSE: Kirti Chavez is an 83-year-old female, who has a past medical history positive for COPD, hypertension, atrial fibrillation, chronic diastolic congestive heart failure, heavy smoker, was diagnosed with COPD exacerbation, underwent CT of the chest without contrast showed right upper lobe mass. She underwent biopsy and biopsy showed evidence of cancer, but with another type. Family decided to make her hospice. She is going home with hospice today. PHYSICAL EXAMINATION: HEART: Showed regular rhythm. Normal S1, S2 sound. LUNGS: Clear bilaterally. LABORATORY DATA: On the BMP; sodium 133, potassium 3.2, chloride 81, CO2 of 37, BUN 20, creatinine 1.85, glucose 139. On the CBC; white blood count 29,100, hemoglobin 10.1, hematocrit 32.2, platelet count 460,000. PT 14.1, PTT 43.1, INR 1.13. ALT 17, total bilirubin 0.5, ALT 20, alkaline phosphatase 111. ASSESSMENT: 1. Chronic obstructive pulmonary disease exacerbation. 2. Anemia of chronic disease. 3. Lung cancer. 4. Leukocytosis. 5. Hypokalemia. 6. Chronic atrial fibrillation. PLAN OF TREATMENT: The patient going home with hospice for comfort care given the poor prognosis. MD CARRI Hager/SORAYA /[id number]
== END 2019-02-13 14:40 | disposition hospice, home (50) | DRG 871 ==
LOC: ER 11:09 → ERHOLD 18:45 → IMCU 22:22 → MED/SURG3 02-05 15:48 → OBSVTOIN 02-06 12:28
PROVIDERS: ADMIT Internal Medicine; ATTEND Internal Medicine
PROC: 0BBC3ZX Excision of Right Upper Lung Lobe, Percutaneous Approach, Diagnostic (ICD-10-PCS; principal; 2019-02-09)
PROC: 30233N1 Transfusion of Nonautologous Red Blood Cells into Peripheral Vein, Percutaneous Approach (ICD-10-PCS; 2019-02-09)
DX: A41.9 Sepsis, unspecified organism (principal); J18.9 Pneumonia, unspecified organism; I50.33 Acute on chronic diastolic (congestive) heart failure; J44.1 Chronic obstructive pulmonary disease with (acute) exacerbation; K92.1 Melena; J44.0 Chronic obstructive pulmonary disease with (acute) lower respiratory infection; C34.11 Malignant neoplasm of upper lobe, right bronchus or lung; I13.0 Hypertensive heart and chronic kidney disease with heart failure and stage 1 through stage 4 chronic kidney disease, or unspecified chronic kidney disease; R19.00 Intra-abdominal and pelvic swelling, mass and lump, unspecified site; E87.6 Hypokalemia; I48.2 Chronic atrial fibrillation; D63.8 Anemia in other chronic diseases classified elsewhere; K59.09 Other constipation; E66.9 Obesity, unspecified; Z68.27 Body mass index [BMI] 27.0-27.9, adult; N18.3 Chronic kidney disease, stage 3 (moderate); E03.9 Hypothyroidism, unspecified; R60.0 Localized edema; R59.9 Enlarged lymph nodes, unspecified; Z66 Do not resuscitate; D50.0 Iron deficiency anemia secondary to blood loss (chronic); R33.9 Retention of urine, unspecified; D63.0 Anemia in neoplastic disease; Z87.891 Personal history of nicotine dependence
CPT/HCPCS: 10009; 32405; 36415; 70553; 71045; 71046; 71250; 74177; 74470; 80048; 80053; 81001; 82270; 82378; 82550; 82553; 82607; 82728; 82746; 83540; 83735; 83880; 84439; 84443; 84466; 84484; 85007; 85025; 85027; 85610; 85730; 86301; 86850; 86900; 86920; 87040; 87070; 87086; 87102; 87116; 87205; 87206; 88172; 88173; 88305; 88342; 93005; 94640; 96361; 96367; 96376; 97139; 99152; 99153; 99285; G0378; J0456; J0692; J0696; J1756; J1940; J2001; J2250; J2405; J2930; J3010; J3370; J7040; J7050; P9016; Q9967